=== PATIENT | male | born 1950 ===

== ENCOUNTER 2016-05-31 14:31 | Emergency (ER) | payer OTHER ==
[2016-05-31 14:31] VITALS: BMI 26.9
[2016-05-31 14:39] VITALS: BP 121/63; PULSE 63; RESP 16; TEMP 97.9; O2SAT 99
--- NOTE | 2016-05-31 14:45 | ED PDOC ---
Arrival/HPI - General Chief Complaint: Abnormal Skin Integrity Time Seen by Provider: 05/31/16 14:41 Historian: Patient - History of Present Illness Narrative History of Present Illness (Text): 05/31/16 14:42 65yo male present in ED with a lesion to his left sided chin x days. States it started as a small pimple which he scratched and then it became bigger, painful and red. Denies fever, chills, any other complaint. Past Medical History - Provider Review Nursing Documentation Reviewed: Yes - Infectious Disease Hx of Infectious Diseases: None - Cardiac Hx Cardiac Disorders: Yes Hx Hypertension: Yes - Pulmonary Hx Respiratory Disorders: No - Neurological Hx Neurological Disorder: No - HEENT Hx HEENT Disorder: No - Renal Hx Renal Disorder: No - Endocrine/Metabolic Hx Endocrine Disorders: No - Hematological/Oncological Hx Blood Disorders: No - Integumentary Hx Dermatological Disorder: No - Musculoskeletal/Rheumatological Hx Musculoskeletal Disorders: Yes Hx Falls: No Hx Fractures: Yes (left thumb has sx) Other/Comment: HERNIA - Gastrointestinal Hx Gastrointestinal Disorders: No - Genitourinary/Gynecological Hx Genitourinary Disorders: No - Psychiatric Hx Psychophysiologic Disorder: No Hx Substance Use: No - Surgical History Other/Comment: RLQ hernia repair - Anesthesia Hx Anesthesia: No Hx Anesthesia Reactions: No Hx Malignant Hyperthermia: No - Suicidal Assessment Feels Threatened In Home Enviroment: No Family/Social History - Physician Review Nursing Documentation Reviewed: Yes Family/Social History: Unknown Family HX Smoking Status: Former Smoker Hx Alcohol Use: No (quit 1988) Hx Substance Use: No Allergies/Home Meds Allergies/Adverse Reactions: Allergies No Known Allergies Allergy (Verified 05/31/16 14:32) Home Medications: Home Meds Medication Instructions Recorded Confirmed Lisinopril [Zestril] 20 mg PO DAILY 01/22/16 05/31/16 Aspirin [Adult Low Dose Aspirin EC] 81 mg PO DAILY 05/31/16 05/31/16 Review of Systems - Physician Review All systems were reviewed & negative as marked: Yes - Review of Systems Constitutional: Normal Eyes: Normal ENT: Normal Respiratory: Normal Cardiovascular: Normal Gastrointestinal: Normal Genitourinary Male: Normal Musculoskeletal: Normal Skin: Skin Lesions (Left sided chin) Neurological: Normal Endocrine: Normal Hemo/Lymphatic: Normal Psychiatric: Normal Physical Exam Vital Signs Reviewed: Yes Vital Signs Temp Pulse Resp BP Pulse Ox 05/31/16 14:34 97.9 F 63 16 121/63 99 Temperature: Afebrile Blood Pressure: Normal Pulse: Regular Respiratory Rate: Normal Appearance: Positive for: Well-Appearing, Non-Toxic, Comfortable Pain Distress: None Mental Status: Positive for: Alert and Oriented X 3 - Systems Exam Head: Present: Atraumatic, Normocephalic Pupils: Present: PERRL Extroacular Muscles: Present: EOMI Conjunctiva: Present: Normal Mouth: Present: Moist Mucous Membranes Neck: Present: Normal Range of Motion Respiratory/Chest: Present: Clear to Auscultation, Good Air Exchange. No: Respiratory Distress, Accessory Muscle Use Cardiovascular: Present: Regular Rate and Rhythm, Normal S1, S2. No: Murmurs Abdomen: Present: Normal Bowel Sounds. No: Tenderness, Distention, Peritoneal Signs Back: Present: Normal Inspection Upper Extremity: Present: Normal Inspection. No: Cyanosis, Edema Lower Extremity: Present: Normal Inspection. No: Edema Neurological: Present: GCS=15, CN II-XII Intact, Speech Normal Skin: Present: Warm, Dry, Normal Color, Other (ERythematous circumscribed mildly raised patch with central fibrous tissue noted on left chin). No: Rashes Psychiatric: Present: Alert, Oriented x 3, Normal Insight, Normal Concentration Medical Decision Making - Medication Orders Current Medication Orders: Discontinued Medications Clindamycin HCl (Cleocin) 300 mg PO STAT STA PRN Reason: Protocol Stop: 05/31/16 14:42 Last Admin: 05/31/16 15:14 Dose: 300 MG Disposition/Present on Arrival - Present on Arrival Any Indicators Present on Arrival: No History of DVT/PE: No History of Uncontrolled Diabetes: No Urinary Catheter: No History of Decub. Ulcer: No History Surgical Site Infection Following: None - Disposition Have Diagnosis and Disposition been Completed?: Yes Diagnosis: Folliculitis Disposition: HOME/ ROUTINE Disposition Time: 15:00 Patient Plan: Discharge Condition: STABLE Discharge Instructions (ExitCare): Folliculitis (ED) Print Language: VIETNAMESE Additional Instructions: Take medication as directed Follow up with your Doctor Return to ED for any new or worsening symptoms Prescriptions: Clindamycin [Cleocin] 300 mg PO TID #10 cap Referrals: [facility] at [facility] [Outside] - Follow up with primary
== END 2016-05-31 15:31 | disposition home or self-care (01) ==
LOC: ED 14:31
DX: L73.9 Follicular disorder, unspecified (principal)

== ENCOUNTER 2016-07-19 06:20 | Day surgery (SDC) | payer OTHER ==
[2016-07-18 09:16] VITALS: BMI 27.4
[2016-07-19] MEDS ORDERED: Lidocaine 2% Inj (20ml) ONE (06:27)
[2016-07-19] MEDS ORDERED: Iohexol 350mgl/ml 50 ML ONE (06:28)
[2016-07-19] MEDS ORDERED: Nitroglycerin 50mg in D5W 0 MG/0 ML BOTTLE IV ONE (06:28)
[2016-07-19] MEDS ORDERED: Phenylephrine 10 mg/ml Inj ONE (06:28)
[2016-07-19] MEDS ORDERED: Iodixanol 320 MG/ML 200 ML BOTTLE IV ONE (06:28)
[2016-07-19] MEDS ORDERED: Iodixanol 320 MG/ML 100 ML BOTTLE IV ONE (06:28)
[2016-07-19 06:49] LABS: ADD MANUAL DIFF? NO
[2016-07-19 07:06] LABS: INR 0.97 (0.93-1.08); PARTIAL THROMBOPLASTIN TIME 26.9 Seconds (23.7-30.8)
[2016-07-19 07:11] LABS: BASO # 0.02 K/mm3 (0.0-2.0); BASO % 0.5 % (0.0-3.0); EOS # 0.2 (0.0-0.7); EOS % 3.5 % (1.5-5.0); GRAN # 2.29 (1.4-6.5); HEMATOCRIT 43.2 % (42.0-52.0); LYMPH # 1.6 (1.2-3.4); MEAN CELL VOLUME 87.1 fL (80.0-105.0); MEAN CORPUSCULAR HEMOGLOBIN 30.8 pg (25.0-35.0); MEAN CORPUSCULAR HGB CONC 35.4 g/dl (31.0-37.0); MEAN PLATELET VOLUME 9.6 fl (7.0-11.0); MONO # 0.3 (0.1-0.6); PLATELET COUNT 235 10^3/uL (120.0-450.0); RED CELL DISTRIBUTION WIDTH 12.7 % (11.5-14.5); WHITE BLOOD COUNT 4.3 10^3/ul (4.5-11.0)
[2016-07-19 07:17] LABS: BLOOD UREA NITROGEN 19 mg/dL (7-21); CALCIUM 9.5 mg/dL (8.4-10.5); CARBON DIOXIDE 30 mmol/L (21-33); CHLORIDE 102 mmol/L (98-107); GFR AFRICAN-AMERICAN > 60; GLUCOSE,RANDOM 99 mg/dL (70-110); POTASSIUM 4.1 mmol/L (3.6-5.0); SODIUM 140 mmol/L (132-148)
[2016-07-19] MEDS ORDERED: Midazolam 2 MG/2 ML VIAL ONE ×2 (07:39→08:05)
[2016-07-19] MEDS ORDERED: Sodium Chloride 0.9% 1,000 ML IV SCH (09:45)
--- NOTE | 2016-07-19 10:27 | CARDCATH ---
PROCEDURE DATE: 07/19/2016 HISTORY: The patient is a 65-year-old male with multiple cardiac risk factors who presents with ches t pain and an abnormal stress test. A cardiac catheterization was recommended. PROCEDURE: Left heart catheterization with coronary angiography and left ventriculogram, followed by IVUS of the left main artery as well as PTCA and stent of the LAD and circumflex artery. The right femoral artery was cannulated with a 6-Yi sheath. There were no complications. The findings on catheterization reveal a right dominant circulation. The RCA was diffusely diseased with a 70-80% stenosis in the mid portion of the RCA followed by diffu se disease and a 90% stenosis in the PDA. The left main artery revealed an eccentric lesion at its ostium/proximal portion of approximately 50% . The LAD revealed diffuse atherosclerosis with a 90% stenosis in the mid portion. The circumflex artery revealed a 90% stenosis in the mid portion. LV function was preserved with an EF of approximately 50-55%. IVUS of the left main artery was performed. IVUS revealed a marked eccentric plaque in a large left main artery, percent stenosis of approximately 50%. The cross sectional area of the left main at the area of the maximum stenosis was greater than 7 mm2. Because of these findings in the left main, we proceeded with angioplasty. The patient was started on intravenous Angiomax. Under fluoroscopic guide, the guiding catheter was placed in the ostium of the left main. An 0.014 ATW wire was used to cross the critical lesion in th e circumflex artery. Predilatation was accomplished with a 2.5 balloon. A 12 mm x 3.5 drug-eluting stent was placed in the circumflex lesion at 12 atmospheres of pressure. Repeat coronary angiography revealed an excellent result with no residual stenosis and MONIQUE 3 flow. The wire was then brought back and placed in the LAD past the critical lesion. A 3.0 x 15 mm drug-eluting stent was placed and deployed at 12 atmospheres of pressure. Post-dilatat ion was performed with a 3.5 noncompliant balloon. Repeat coronary arteriography revealed an excellent result with no residual stenosis and MONIQUE 3 flow. Angio-Seal was used to close the femoral artery site. The patient tolerated the procedure well. IN SUMMARY: 1. The procedure was successful percutaneous transluminal coronary angioplasty and stent of and left anterior descending and circumflex artery with drug-eluting stents. 2. Cardiac catheterization reveals triple-vessel disease with a borderline critical left main stenos is. 3. Intravascular ultrasound imaging of the eccentric left main stenosis revealed a cross sectional a bradford at the maximum stenosis of greater than 7 mm2. 4. Left ventricular function is normal. Given these findings, we will bring the patient back next week for PTCA of the RCA as well as a diffu sely diseased, subtotally occluded diagonal vessel. Dagoebrto White MD cc: [phone] TT: 07/19/2016 10:26:36 tn
--- NOTE | 2016-07-19 13:46 | CP.PCM.HP ---
<Benny Meade - Last Filed: 07/19/16 17:02> History of Present Illness - History of Present Illness History of Present Illness: 65M with pmh of HTN, admitted to [facility] after cardiac cath procedure. Pt. was at routine exam here at the [facility] last week and was worked up for chest pain that he had for over 4 years. He underwent a Echocardiogram which showed borderline concentric LV hypertrophy, borderline EF, and mild TR, mild pulm htn , ,and pulm valv regurg. A myocardial stress test was also done the same day which resulted in partially reversible, apical defect suspicious of ischemia. Cardiac cath showed 3 vessel disease with JOYA placed in the LAD, circumflex. A repeat cath for next week is scheduled and planned stent for the RCA. Today, after his procedure he had no complaints other that mild chest pain. He denies headache, fever, chills, difficulty breathing, N/V/D, abdominal pain or any GI/ symptoms. PMD 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 absent: Dyspnea - Respiratory Respiratory: absent: Cough, Dyspnea, Hemoptysis - Gastrointestinal Gastrointestinal: absent: Diarrhea, Hematemesis, Hematochezia, Nausea, Vomiting - Genitourinary Genitourinary: absent: Dysuria, Hematuria, Pyuria, Urinary Incontinence - Musculoskeletal Musculoskeletal: absent: Back Pain, Muscle Weakness, Neck Pain, Numbness, Tingling - Integumentary Integumentary: absent: Dry Skin, Pruritus, Rash, Skin Pain, Swelling - Neurological Neurological: absent: Abnormal Gait, Abnormal Speech, Lack of Coordination, Loss of Vision, Vertigo, Weakness - Psychiatric Psychiatric: absent: Confusion, Depression - Endocrine Endocrine: absent: Fatigue, Palpitations, Polydipsia, Polyphagia, Polyuria Past Patient History - Infectious Disease Hx of Infectious Diseases: None - Past Social History Smoking Status: Former Smoker Occupation: Repairs Furniture Alcohol: None Drugs: Denies Home Situation {Lives}: With Family - CARDIAC Hx Cardiac Disorders: Yes Hx Hypertension: Yes Hx Pacemaker: No - PULMONARY Hx Respiratory Disorders: No - NEUROLOGICAL Hx Neurological Disorder: No Hx Paralysis: No - HEENT Hx HEENT Problems: No - RENAL Hx Chronic Kidney Disease: No - ENDOCRINE/METABOLIC Hx Endocrine Disorders: No - HEMATOLOGICAL/ONCOLOGICAL Hx Blood Transfusions: No - INTEGUMENTARY Hx Dermatological Problems: No - MUSCULOSKELETAL/RHEUMATOLOGICAL Hx Musculoskeletal Disorders: Yes - GASTROINTESTINAL Hx Gastrointestinal Disorders: No - GENITOURINARY/GYNECOLOGICAL Hx Genitourinary Disorders: No - PSYCHIATRIC Hx Emotional Abuse: No Hx Physical Abuse: No Hx Substance Use: No - SURGICAL HISTORY Hx Surgeries: Yes - ANESTHESIA Hx Anesthesia Reactions: No Hx Malignant Hyperthermia: No Meds Allergies/Adverse Reactions: Allergies Allergy/AdvReac Type Severity Reaction Status Date / Time SALMON Allergy Severe VOMITING/DI Uncoded 07/18/16 09:16 ARRHEA Physical Exam - Constitutional Appears: Non-toxic, No Acute Distress - Head Exam Head Exam: ATRAUMATIC, NORMOCEPHALIC - Eye Exam Eye Exam: EOMI - ENT Exam ENT Exam: Mucous Membranes Moist, Normal Exam - Neck Exam Neck exam: Positive for: Normal Inspection. Negative for: Lymphadenopathy, Thyromegaly - Respiratory Exam Respiratory Exam: Clear to Auscultation Bilateral, NORMAL BREATHING PATTERN. absent: Rhonchi, Wheezes - Cardiovascular Exam Cardiovascular Exam: REGULAR RHYTHM, RRR, +S1, +S2. absent: JVD - GI/Abdominal Exam GI & Abdominal Exam: Normal Bowel Sounds, Soft. absent: Tenderness - Extremities Exam Extremities exam: Positive for: normal inspection. Negative for: calf tenderness, full ROM, joint swelling, pedal edema, tenderness - Neurological Exam Neurological exam: Alert, CN II-XII Intact, Normal Gait, Oriented x3, Reflexes Normal - Psychiatric Exam Psychiatric exam: Normal Affect, Normal Mood - Skin Skin Exam: Dry, Intact, Normal Color, Warm Results - Vital Signs Recent Vital Signs: Last Vital Signs Temp 98.7 F 07/19/16 12:00 Pulse 100 H 07/19/16 12:00 Resp 19 07/19/16 12:00 BP 138/78 07/19/16 12:00 Pulse Ox 98 07/19/16 06:55 - Labs Result Diagrams: 07/19/16 06:40 07/19/16 06:40 Labs: Laboratory Results - last 24 hr 07/19/16 07/19/16 07/19/16 06:40 06:40 06:40 WBC 4.3 L RBC 4.96 Hgb 15.3 Hct 43.2 MCV 87.1 MCH 30.8 MCHC 35.4 RDW 12.7 Plt Count 235 MPV 9.6 Gran % 53.0 Lymph % (Auto) 37.0 H Hickman % (Auto) 6.0 Eos % (Auto) 3.5 Baso % (Auto) 0.5 Gran # 2.29 Lymph # 1.6 Hickman # 0.3 Eos # 0.2 Baso # 0.02 PT 10.5 INR 0.97 APTT 26.9 Sodium 140 Potassium 4.1 Chloride 102 Carbon Dioxide 30 Anion Gap 12 BUN 19 Creatinine 1.0 Est GFR ( Amer) > 60 Est GFR (Non-Af Amer) > 60 Random Glucose 99 Calcium 9.5 Blood Type Blood Type Confirm Antibody Screen BBK History Checked 07/19/16 07/19/16 06:40 06:50 WBC RBC Hgb Hct MCV MCH MCHC RDW Plt Count MPV Gran % Lymph % (Auto) Hickman % (Auto) Eos % (Auto) Baso % (Auto) Gran # Lymph # Hickman # Eos # Baso # PT INR APTT Sodium Potassium Chloride Carbon Dioxide Anion Gap BUN Creatinine Est GFR ( Amer) Est GFR (Non-Af Amer) Random Glucose Calcium Blood Type A POSITIVE Blood Type Confirm A POSITIVE Antibody Screen Negative BBK History Checked No verified bt Assessment & Plan - Assessment and Plan (Free Text) Assessment: 65M with pmh of HTN s/p cath with 3 vessel disease and 2 JOYA placed. Plan: Myocardial Infarction - Cardiac Consult - Dr. White - Pt. s/p Cardiac Cath revealing 3 vessel disease in LAD, circumflex, and RCA. - JOYA placed in LAD, and circumflex - scheduled for stent in RCA next week. - Pt. currently on: -ASA 81mg -Lipitor 40mg -Plavix 75mg -Metoprolol 25mg BID - Assess Cath insertion site regularly HTN -on metoprolol DVT PPX SCDs - Date & Time Date: 07/19/16 Time: 14:00 <Oc Manuel B - Last Filed: 07/19/16 17:28> Results - Vital Signs Recent Vital Signs: Last Vital Signs Temp 98.7 F 07/19/16 12:00 Pulse 54 L 07/19/16 15:45 Resp 16 07/19/16 15:45 BP 114/49 L 07/19/16 15:45 Pulse Ox 98 07/19/16 06:55 - Labs Result Diagrams: 07/19/16 06:40 07/19/16 06:40 Labs: Laboratory Results - last 24 hr 07/19/16 07/19/16 07/19/16 06:40 06:40 06:40 WBC 4.3 L RBC 4.96 Hgb 15.3 Hct 43.2 MCV 87.1 MCH 30.8 MCHC 35.4 RDW 12.7 Plt Count 235 MPV 9.6 Gran % 53.0 Lymph % (Auto) 37.0 H Hickman % (Auto) 6.0 Eos % (Auto) 3.5 Baso % (Auto) 0.5 Gran # 2.29 Lymph # 1.6 Hickman # 0.3 Eos # 0.2 Baso # 0.02 PT 10.5 INR 0.97 APTT 26.9 Sodium 140 Potassium 4.1 Chloride 102 Carbon Dioxide 30 Anion Gap 12 BUN 19 Creatinine 1.0 Est GFR ( Amer) > 60 Est GFR (Non-Af Amer) > 60 Random Glucose 99 Calcium 9.5 Blood Type Blood Type Confirm Antibody Screen BBK History Checked 07/19/16 07/19/16 06:40 06:50 WBC RBC Hgb Hct MCV MCH MCHC RDW Plt Count MPV Gran % Lymph % (Auto) Hickman % (Auto) Eos % (Auto) Baso % (Auto) Gran # Lymph # Hickman # Eos # Baso # PT INR APTT Sodium Potassium Chloride Carbon Dioxide Anion Gap BUN Creatinine Est GFR ( Amer) Est GFR (Non-Af Amer) Random Glucose Calcium Blood Type A POSITIVE Blood Type Confirm A POSITIVE Antibody Screen Negative BBK History Checked No verified bt Attending/Attestation - Attestation I have personally seen and examined this patient.: Yes I have fully participated in the care of the patient.: Yes I have reviewed all pertinent clinical information: Yes Notes (Text): I have seen and examined the patient at bedside. This is 65 year old Yakut speaking male with history of HTN, inguinal hernia repair, former smoker who is admitted as an observation post cardiac cath. He underwent cardiac cath due to positive stress test. Stent was placed in LAD and circumflex. Plan for repeat cath next week. Continue aspirin, plavix, lipitor and metoprolol. Upon discharge patient will follow up in [facility] [place] Dr Oc Manuel
--- NOTE | 2016-07-19 14:35 | CARD ---
APPROVED REPORT EKG Measurement Heart [id number] CO [id number] <Conclusion> Sinus bradycardia Low voltage QRS limb leads Possible Inferior infarct, age undetermined NSSTW changes
[2016-07-20 06:13] VITALS: RESP 20; O2SAT 96
[2016-07-20 06:44] LABS: ADD MANUAL DIFF? NO
[2016-07-20 06:55] LABS: BASO # 0.01 K/mm3 (0.0-2.0); BASO % 0.2 % (0.0-3.0); EOS # 0.2 (0.0-0.7); EOS % 3.6 % (1.5-5.0); GRAN # 2.73 (1.4-6.5); LYMPH # 1.7 (1.2-3.4); LYMPH % 34.5 % (22.0-35.0); MEAN CELL VOLUME 87.1 fL (80.0-105.0); MEAN CORPUSCULAR HEMOGLOBIN 30.3 pg (25.0-35.0); MEAN CORPUSCULAR HGB CONC 34.8 g/dl (31.0-37.0); MEAN PLATELET VOLUME 9.7 fl (7.0-11.0); MONO # 0.3 (0.1-0.6); MONO % 6.7 % (1.0-6.0); PLATELET COUNT 232 10^3/uL (120.0-450.0); RED CELL DISTRIBUTION WIDTH 12.7 % (11.5-14.5)
[2016-07-20 07:12] LABS: BLOOD UREA NITROGEN 17 mg/dL (7-21); CALCIUM 9.2 mg/dL (8.4-10.5); CARBON DIOXIDE 29 mmol/L (21-33); CHLORIDE 101 mmol/L (98-107); CHOLESTEROL 174 mg/dL (130-200); GFR AFRICAN-AMERICAN > 60; GLUCOSE,RANDOM 89 mg/dL (70-110); POTASSIUM 4.2 mmol/L (3.6-5.0); SODIUM 139 mmol/L (132-148)
--- NOTE | 2016-07-20 09:58 | CP.PCM.DIS ---
<Benny Meade - Last Filed: 07/23/16 16:24> Provider - Provider Attending physician: Oc Manuel MD Primary care physician: Livia FINNEY Time Spent in preparation of Discharge (in minutes): 35 Diagnosis - Discharge Diagnosis (1) Chest pain due to myocardial ischemia Status: Acute (2) Coronary artery disease Status: Acute Hospital Course - Lab Results Lab Results: Most Recent Lab Values WBC 5.0 10^3/ul (4.5-11.0) 07/20/16 06:30 RBC 4.82 10^6/uL (3.5-6.1) 07/20/16 06:30 Hgb 14.6 gm/dL (14.0-18.0) 07/20/16 06:30 Hct 42.0 % (42.0-52.0) 07/20/16 06:30 MCV 87.1 fL (80.0-105.0) 07/20/16 06:30 MCH 30.3 pg (25.0-35.0) 07/20/16 06:30 MCHC 34.8 g/dl (31.0-37.0) 07/20/16 06:30 RDW 12.7 % (11.5-14.5) 07/20/16 06:30 Plt Count 232 10^3/uL (120.0-450.0) 07/20/16 06:30 MPV 9.7 fl (7.0-11.0) 07/20/16 06:30 Gran % 55.0 % (50.0-68.0) 07/20/16 06:30 Lymph % (Auto) 34.5 % (22.0-35.0) 07/20/16 06:30 Nobles % (Auto) 6.7 % (1.0-6.0) H 07/20/16 06:30 Eos % (Auto) 3.6 % (1.5-5.0) 07/20/16 06:30 Baso % (Auto) 0.2 % (0.0-3.0) 07/20/16 06:30 Gran # 2.73 (1.4-6.5) 07/20/16 06:30 Lymph # 1.7 (1.2-3.4) 07/20/16 06:30 Nobles # 0.3 (0.1-0.6) 07/20/16 06:30 Eos # 0.2 (0.0-0.7) 07/20/16 06:30 Baso # 0.01 K/mm3 (0.0-2.0) 07/20/16 06:30 PT 10.5 Seconds (9.9-11.8) 07/19/16 06:40 INR 0.97 (0.93-1.08) 07/19/16 06:40 APTT 26.9 Seconds (23.7-30.8) 07/19/16 06:40 Sodium 139 mmol/L (132-148) 07/20/16 06:30 Potassium 4.2 mmol/L (3.6-5.0) 07/20/16 06:30 Chloride 101 mmol/L (98-107) 07/20/16 06:30 Carbon Dioxide 29 mmol/L (21-33) 07/20/16 06:30 Anion Gap 13 (10-20) 07/20/16 06:30 BUN 17 mg/dL (7-21) 07/20/16 06:30 Creatinine 1.0 mg/dL (0.5-1.4) 07/20/16 06:30 Est GFR ( Amer) > 60 07/20/16 06:30 Est GFR (Non-Af Amer) > 60 07/20/16 06:30 Random Glucose 89 mg/dL (70-110) 07/20/16 06:30 Calcium 9.2 mg/dL (8.4-10.5) 07/20/16 06:30 Triglycerides 107 mg/dL (35-160) 07/20/16 06:30 Cholesterol 174 mg/dL (130-200) 07/20/16 06:30 LDL Cholesterol Direct 94 mg/dL (0-129) 07/20/16 06:30 HDL Cholesterol 38 mg/dL (29-60) 07/20/16 06:30 TSH 3rd Generation 1.76 mIU/mL (0.46-4.68) 07/20/16 06:30 Blood Type A POSITIVE 07/19/16 06:40 Blood Type Confirm A POSITIVE 07/19/16 06:50 Antibody Screen Negative 07/19/16 06:40 BBK History Checked No verified bt 07/19/16 06:40 - Hospital Course Hospital Course: 65M with pmh of HTN, admitted to tele after cardiac cath procedure. Pt. was at routine exam here at the [facility] last week and was worked up for chest pain that he had for over 4 years. He underwent a Echocardiogram which showed borderline concentric LV hypertrophy, borderline EF, and mild TR, mild pulm htn , ,and pulm valv regurg. A myocardial stress test was also done the same day which resulted in partially reversible, apical defect suspicious of ischemia. Cardiac cath showed 3 vessel disease with JOYA placed in the LAD, circumflex. A repeat cath for next week is scheduled and planned stent for the RCA. This is a brief account of his stay. For more information, please see his chart. - Date & Time of H&P Date of H&P: 07/20/16 Time of H&P: 07:20 Discharge Exam - Head Exam Head Exam: ATRAUMATIC, NORMOCEPHALIC - Eye Exam Eye Exam: EOMI, Normal appearance - ENT Exam ENT Exam: Mucous Membranes Moist - Neck Exam Neck exam: Full Rom - Respiratory Exam Respiratory Exam: Clear to PA & Lateral, NORMAL BREATHING PATTERN, UNREMARKABLE. absent: Respiratory Distress - Cardiovascular Exam Cardiovascular Exam: REGULAR RHYTHM, RRR, +S1, +S2. absent: JVD - GI/Abdominal Exam GI & Abdominal Exam: Normal Bowel Sounds, Soft, Unremarkable. absent: Tenderness - Back Exam Back exam: absent: CVA tenderness (L), CVA tenderness (R), paraspinal tenderness - Neurological Exam Neurological exam: Alert, CN II-XII Intact, Oriented x3 - Psychiatric Exam Psychiatric exam: Normal Affect, Normal Mood - Skin Skin Exam: Dry, Intact, Normal Color, Warm Discharge Plan - Discharge Medications Prescriptions: Aspirin [Ecotrin] 81 mg PO DAILY #30 Atorvastatin [Lipitor] 40 mg PO DIN #30 tab Clopidogrel [Plavix] 75 mg PO DAILY #30 tab Metoprolol Tartrate [Lopressor] 25 mg PO BID #30 tab - Follow Up Plan Condition: GOOD Disposition: HOME/ ROUTINE Instructions: Chest Pain (DC) Additional Instructions: Pt. is medically stable for discharge. Please follow up with your appointment next week for your second cardiac catheterization. You will be contacted to schedule this. Please follow up with your primary care doctor, let them know you will be scheduled for another heart catheterization and will have a total of 3 stents. Please stop taking your home prescription of Lisinopril. Thank you for allowing us to take part in your care Referrals: Livia Moses APN-C [Primary Care Provider] - Dagoberto White MD [Staff Provider] - <Oc Manuel - Last Filed: 07/30/16 13:33> Provider - Provider Attending physician: Oc Manuel MD Primary care physician: Livia FINNEY Hospital Course - Lab Results Lab Results: Most Recent Lab Values WBC 5.0 10^3/ul (4.5-11.0) 07/20/16 06:30 RBC 4.82 10^6/uL (3.5-6.1) 07/20/16 06:30 Hgb 14.6 gm/dL (14.0-18.0) 07/20/16 06:30 Hct 42.0 % (42.0-52.0) 07/20/16 06:30 MCV 87.1 fL (80.0-105.0) 07/20/16 06:30 MCH 30.3 pg (25.0-35.0) 07/20/16 06:30 MCHC 34.8 g/dl (31.0-37.0) 07/20/16 06:30 RDW 12.7 % (11.5-14.5) 07/20/16 06:30 Plt Count 232 10^3/uL (120.0-450.0) 07/20/16 06:30 MPV 9.7 fl (7.0-11.0) 07/20/16 06:30 Gran % 55.0 % (50.0-68.0) 07/20/16 06:30 Lymph % (Auto) 34.5 % (22.0-35.0) 07/20/16 06:30 Nobles % (Auto) 6.7 % (1.0-6.0) H 07/20/16 06:30 Eos % (Auto) 3.6 % (1.5-5.0) 07/20/16 06:30 Baso % (Auto) 0.2 % (0.0-3.0) 07/20/16 06:30 Gran # 2.73 (1.4-6.5) 07/20/16 06:30 Lymph # 1.7 (1.2-3.4) 07/20/16 06:30 Nobles # 0.3 (0.1-0.6) 07/20/16 06:30 Eos # 0.2 (0.0-0.7) 07/20/16 06:30 Baso # 0.01 K/mm3 (0.0-2.0) 07/20/16 06:30 PT 10.5 Seconds (9.9-11.8) 07/19/16 06:40 INR 0.97 (0.93-1.08) 07/19/16 06:40 APTT 26.9 Seconds (23.7-30.8) 07/19/16 06:40 Sodium 139 mmol/L (132-148) 07/20/16 06:30 Potassium 4.2 mmol/L (3.6-5.0) 07/20/16 06:30 Chloride 101 mmol/L (98-107) 07/20/16 06:30 Carbon Dioxide 29 mmol/L (21-33) 07/20/16 06:30 Anion Gap 13 (10-20) 07/20/16 06:30 BUN 17 mg/dL (7-21) 07/20/16 06:30 Creatinine 1.0 mg/dL (0.5-1.4) 07/20/16 06:30 Est GFR ( Amer) > 60 07/20/16 06:30 Est GFR (Non-Af Amer) > 60 07/20/16 06:30 Random Glucose 89 mg/dL (70-110) 07/20/16 06:30 Calcium 9.2 mg/dL (8.4-10.5) 07/20/16 06:30 Triglycerides 107 mg/dL (35-160) 07/20/16 06:30 Cholesterol 174 mg/dL (130-200) 07/20/16 06:30 LDL Cholesterol Direct 94 mg/dL (0-129) 07/20/16 06:30 HDL Cholesterol 38 mg/dL (29-60) 07/20/16 06:30 TSH 3rd Generation 1.76 mIU/mL (0.46-4.68) 07/20/16 06:30 Blood Type A POSITIVE 07/19/16 06:40 Blood Type Confirm A POSITIVE 07/19/16 06:50 Antibody Screen Negative 07/19/16 06:40 BBK History Checked No verified bt 07/19/16 06:40 Attending/Attestation - Attestation I have personally seen and examined this patient.: Yes I have fully participated in the care of the patient.: Yes I have reviewed all pertinent clinical information, including history, physical exam and plan: Yes Notes (Text): I have seen and examined the patient at bedside. This is 65 year old Albanian speaking male with history of HTN, inguinal hernia repair, former smoker who is admitted as an observation post cardiac cath. He underwent cardiac cath due to positive stress test. Stent was placed in LAD and circumflex. Plan for repeat cath next week. Patient will follow up in [facility] clinic. Dr Oc Manuel
--- NOTE | 2016-07-20 11:50 | CARD ---
APPROVED REPORT EKG Measurement Heart [id number] ID [id number] <Conclusion> Sinus bradycardia Possible IMI, age unknown NSSTW changes
[2016-07-20 13:05] VITALS: BP 118/64; PULSE 68; TEMP 98.1
== END 2016-07-20 15:45 | disposition home or self-care (01) ==
LOC: CATH 06:20 → 2RSO 09:24 → CATH 07-20 15:45
PROVIDERS: ATTEND Hospitalist
DX: I25.10 Atherosclerotic heart disease of native coronary artery without angina pectoris (principal); I10 Essential (primary) hypertension; Z87.891 Personal history of nicotine dependence
CPT/HCPCS: 36415; 80048; 85025; 85610; 85730; 86850; 86900; 92978; 93005; 93458; 99152; 99153; C1725 ×2; C1753; C1760; C1769 ×2; C1874 ×2; C1887; C2629; C9600; C9601; J0583; J1644; J2250; J3010; J7040 ×2; Q9967 ×2

== ENCOUNTER 2016-07-25 06:03 | Day surgery (SDC) | payer OTHER ==
[2016-07-23 11:00] VITALS: BMI 26.6
[2016-07-25] MEDS ORDERED: Iodixanol 320 MG/ML 100 ML BOTTLE IV ONE (06:21)
[2016-07-25] MEDS ORDERED: Phenylephrine 10 mg/ml Inj ONE (06:21)
[2016-07-25] MEDS ORDERED: Nitroglycerin 50mg in D5W 0 MG/0 ML BOTTLE IV ONE (06:21)
[2016-07-25] MEDS ORDERED: Iodixanol 320 MG/ML 200 ML BOTTLE IV ONE (06:21)
[2016-07-25] MEDS ORDERED: Iohexol 350mgl/ml 50 ML ONE (06:21)
[2016-07-25] MEDS ORDERED: Lidocaine 2% Inj (20ml) ONE (06:21)
[2016-07-25 06:58] LABS: ADD MANUAL DIFF? NO
[2016-07-25 07:10] LABS: BLOOD UREA NITROGEN 15 mg/dL (7-21); CALCIUM 8.8 mg/dL (8.4-10.5); CARBON DIOXIDE 28 mmol/L (21-33); CHLORIDE 102 mmol/L (98-107); GFR AFRICAN-AMERICAN > 60; GLUCOSE,RANDOM 106 mg/dL (70-110); POTASSIUM 3.8 mmol/L (3.6-5.0); SODIUM 140 mmol/L (132-148)
[2016-07-25 07:12] LABS: INR 1.02 (0.93-1.08); PARTIAL THROMBOPLASTIN TIME 26.1 Seconds (23.7-30.8)
[2016-07-25] MEDS ORDERED: Midazolam 2 MG/2 ML VIAL ONE ×2 (07:21→07:53)
[2016-07-25 07:22] LABS: BASO # 0.02 K/mm3 (0.0-2.0); BASO % 0.5 % (0.0-3.0); EOS # 0.2 (0.0-0.7); EOS % 3.9 % (1.5-5.0); GRAN # 1.64 (1.4-6.5); GRAN % 42.8 % (50.0-68.0); HEMATOCRIT 38.7 % (42.0-52.0); LYMPH # 1.7 (1.2-3.4); LYMPH % 43.2 % (22.0-35.0); MEAN CELL VOLUME 85.8 fL (80.0-105.0); MEAN CORPUSCULAR HEMOGLOBIN 30.6 pg (25.0-35.0); MEAN CORPUSCULAR HGB CONC 35.7 g/dl (31.0-37.0); MEAN PLATELET VOLUME 9.4 fl (7.0-11.0); MONO # 0.4 (0.1-0.6); MONO % 9.6 % (1.0-6.0); PLATELET COUNT 233 10^3/uL (120.0-450.0); RED CELL DISTRIBUTION WIDTH 12.3 % (11.5-14.5); WHITE BLOOD COUNT 3.8 10^3/ul (4.5-11.0)
[2016-07-25] MEDS ORDERED: Sodium Chloride 0.9% 1,000 ML IV SCH (08:30)
--- NOTE | 2016-07-25 12:33 | CARDCATH ---
PROCEDURE DATE: 07/25/2016 HISTORY: The patient is a 65-year-old male who presents for staged PTCA of an RCA. Last week, he presented with unstable angina. 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 He was also n oted to have a borderline critical left main stenoses documented by IVUS. However, the area of steno sis was greater than 7 mm squared. He underwent PTCA and stent of the left anterior descending and circumflex artery. He was brought ba for PTCA and stent of the RCA. PROCEDURE: Left heart catheterization with coronary angiography and left ventriculogram. The left femoral artery was cannulated with a 6-Vincentian sheath. There were no complications. His right coronary artery was found to be a dominant vessel with multiple critical lesions including a 70%-80% stenosis in the portion followed by a 90% stenosis in the PDA. The stents in the left anterior descending and circumflex artery were patent. However, in the ANIKET cranial view, the ostial left main stenoses was now noted to be greater than 90%. LV function revealed normal LV function. No intervention was performed. Angio-Seal was used to close the femoral artery site. The patient tolerated the procedure well. In summary, the procedure revealed a 90% ostial left main stenosis that was worse than seen on his pr evious procedure. The stents in the LAD and circumflex arteries, which were drug-eluting stents, were found to be paten t. The RCA revealed multiple critical lesions. LV function is normal. Given these findings, no angioplasty of the RCA was done. Instead, I have contacted Dr. Liban cota of [facility] for transfer to [facility] for coronary artery bypass surgery. Dagoberto White MD cc: [phone] TT: 07/25/2016 10:22:58 jade
--- NOTE | 2016-07-25 13:30 | CP.PCM.HP ---
<MeadeBenny jimenez - Last Filed: 07/25/16 17:11> History of Present Illness - History of Present Illness History of Present Illness: 65 year old moroccan speaking male with pmh of HTN, admitted to [facility] after cardiac cath procedure for planned stent in the RCA. Pt. underwent a cardiac cath last week which showed 3 vessel disease with JOYA placed in the LAD and circumflex. The stent was not able to be placed during the procedure today. Pt. needs to be evaluated by a Cardio-thoracic surgeon for possible CABG. He is likely to be transferred to [facility] and awaiting a bed to be available. He has no complaints at this time and denies headache, fever, chills , chest pain, difficulty breathing, N/V/D, abdominal pain, any GI/ symptoms or any bleeding/tenderness at the left inguinal cath site. Employment Interviewer #[id number] was reached via teleconference for translation. PMD 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 Tob - quit 30 years ago Alc - denies Drugs - denies All Kamas dizzy, vomits, diarrhea Meds Lisinopril 20 ASA 81 Multivitamin Present on Admission - Present on Admission Any Indicators Present on Admission: No Review of Systems - Constitutional Constitutional: absent: Chills, Fever, Headache - EENT Eyes: absent: Blurred Vision, Change in Vision Ears: absent: Abnormal Hearing, Dizziness Nose/Mouth/Throat: absent: Hoarsness, Sore Throat, Facial Pain, Neck Pain - Cardiovascular Cardiovascular: absent: Chest Pain, Chest Pain at Rest, Dyspnea, Leg Edema, Leg Ulcers, Radiating Pain, Syncope - Respiratory Respiratory: absent: Cough, Dyspnea, Chest Congestion - Gastrointestinal Gastrointestinal: absent: Abdominal Pain, Diarrhea, Nausea, Vomiting - Genitourinary Genitourinary: absent: Dysuria, Hematuria, Pyuria, Urinary Incontinence - Musculoskeletal Musculoskeletal: absent: Back Pain, Neck Pain, Numbness, Tingling - Integumentary Integumentary: absent: Rash, Skin Pain, Swelling, Wounds - Neurological Neurological: absent: Abnormal Hearing, Abnormal Movements, Abnormal Speech, Dizziness, Loss of Vision, Tingling, Weakness - Endocrine Endocrine: absent: Cold Intolorance, Fatigue, Flushing, Heat Intolorance, Palpitations, Polydipsia, Polyphagia, Polyuria Past Patient History - Infectious Disease Hx of Infectious Diseases: None - Past Medical History & Family History Pertinent Family History: denies - Past Social History Smoking Status: Former Smoker Alcohol: None Drugs: Denies Home Situation {Lives}: With Family - CARDIAC Hx Cardiac Disorders: Yes Hx Pacemaker: No Other/Comment: CAD - PULMONARY Hx Respiratory Disorders: No - NEUROLOGICAL Hx Paralysis: No - HEENT Hx HEENT Problems: No - RENAL Hx Chronic Kidney Disease: No - ENDOCRINE/METABOLIC Hx Endocrine Disorders: No - HEMATOLOGICAL/ONCOLOGICAL Hx Blood Transfusions: No - INTEGUMENTARY Hx Dermatological Problems: No - MUSCULOSKELETAL/RHEUMATOLOGICAL Hx Musculoskeletal Disorders: Yes - GASTROINTESTINAL Hx Gastrointestinal Disorders: No - GENITOURINARY/GYNECOLOGICAL Hx Genitourinary Disorders: No - PSYCHIATRIC Hx Emotional Abuse: No Hx Physical Abuse: No Hx Substance Use: No - SURGICAL HISTORY Hx Surgeries: Yes Hx Cardiac Catheterization: Yes (07/19/16 3 vessel disease received 2 stents) - ANESTHESIA Hx Anesthesia Reactions: No Hx Malignant Hyperthermia: No Meds Allergies/Adverse Reactions: Allergies Allergy/AdvReac Type Severity Reaction Status Date / Time SALMON Allergy Severe VOMITING/DI Uncoded 07/18/16 09:16 ARRHEA Physical Exam - Constitutional Appears: Non-toxic, No Acute Distress - Head Exam Head Exam: ATRAUMATIC, NORMOCEPHALIC - Eye Exam Eye Exam: EOMI - ENT Exam ENT Exam: Mucous Membranes Moist - Respiratory Exam Respiratory Exam: Clear to Auscultation Bilateral, NORMAL BREATHING PATTERN - Cardiovascular Exam Cardiovascular Exam: REGULAR RHYTHM, +S1, +S2. absent: JVD - GI/Abdominal Exam GI & Abdominal Exam: Normal Bowel Sounds, Soft. absent: Tenderness - Extremities Exam Extremities exam: Positive for: pedal pulses present. Negative for: joint swelling, pedal edema, tenderness - Neurological Exam Neurological exam: Alert, Oriented x3 - Psychiatric Exam Psychiatric exam: Normal Affect, Normal Mood - Skin Skin Exam: Dry, Intact, Normal Color, Warm Results - Vital Signs Recent Vital Signs: Last Vital Signs Temp 97.8 F 07/25/16 12:00 Pulse 66 07/25/16 12:36 Resp 19 07/25/16 12:36 BP 112/63 07/25/16 12:36 Pulse Ox 100 07/25/16 06:30 - Labs Result Diagrams: 07/25/16 06:55 07/25/16 06:55 Labs: Laboratory Results - last 24 hr 07/25/16 07/25/16 07/25/16 06:55 06:55 06:55 WBC 3.8 L D RBC 4.51 Hgb 13.8 L Hct 38.7 L MCV 85.8 MCH 30.6 MCHC 35.7 RDW 12.3 Plt Count 233 MPV 9.4 Gran % 42.8 L Lymph % (Auto) 43.2 H [place] % (Auto) 9.6 H Eos % (Auto) 3.9 Baso % (Auto) 0.5 Gran # 1.64 Lymph # 1.7 [place] # 0.4 Eos # 0.2 Baso # 0.02 PT 11.0 INR 1.02 APTT 26.1 Sodium 140 Potassium 3.8 Chloride 102 Carbon Dioxide 28 Anion Gap 14 BUN 15 Creatinine 0.9 Est GFR ( Amer) > 60 Est GFR (Non-Af Amer) > 60 Random Glucose 106 Calcium 8.8 Blood Type Antibody Screen BBK History Checked 07/25/16 06:55 WBC RBC Hgb Hct MCV MCH MCHC RDW Plt Count MPV Gran % Lymph % (Auto) [place] % (Auto) Eos % (Auto) Baso % (Auto) Gran # Lymph # [place] # Eos # Baso # PT INR APTT Sodium Potassium Chloride Carbon Dioxide Anion Gap BUN Creatinine Est GFR ( Amer) Est GFR (Non-Af Amer) Random Glucose Calcium Blood Type A POSITIVE Antibody Screen Negative BBK History Checked Patient has bt Assessment & Plan - Assessment and Plan (Free Text) Assessment: 65M with pmh of HTN and recent cardiac cath for 3 vessel disease with 2 stents placed in the LAD and circumflex last week. Pt. is s/p second cath in which a stent was unable to be placed. Plan: 3 vessel disease in LAD, circumflex, and RCA - Cardiac Consult - Dr. Gomez - Last week 2 JOYA placed in LAD, and circumflex, no complications - Pt. s/p 2nd Cardiac Cath, unable to place 3rd stent - awaiting bed in [facility] for Cardio-Thoracic evaluations for possible CABG - Pt. currently on: -ASA 81mg -Lipitor 40mg -Metoprolol 25mg BID - Assess Cath insertion site regularly HTN -on metoprolol DVT PPX SCDs - Date & Time Date: 07/25/16 Time: 12:30 <Mitzy Beckham - Last Filed: 07/27/16 13:32> Results - Vital Signs Recent Vital Signs: Last Vital Signs Temp 98.2 F 07/25/16 23:51 Pulse 51 L 07/25/16 23:51 Resp 20 07/25/16 23:51 BP 109/60 07/25/16 23:51 Pulse Ox 99 07/25/16 23:51 - Labs Result Diagrams: 07/25/16 06:55 07/25/16 06:55 Attending/Attestation - Attestation I have personally seen and examined this patient.: Yes I have fully participated in the care of the patient.: Yes I have reviewed all pertinent clinical information: Yes Notes (Text): 07/27/16 13:25 hospitalist note; Patient seen and examined with resident. Agreed with resident's note with some exceptions. patient is a 65-year-old pmh of HTN, CAD stent is admitted post cardiac cath. Patient underwent a cardiac cath last week which showed 3 vessel disease with JOYA placed in the LAD and circumflex. found to have left main stenosis. LV function was normal. The patient came in today for outpatient cardiac cath by Dr. Gomez. cardiac cath revealed RCA 70-80% and left main over 90% stenosis. since there is critical left main stenosis the patient will be referred to [facility]. Patient will go to [facility] for CABG. Case discussed with cardioThoracic surgery by DR. gomez. Waiting for transfer. The diagnosis and plan discussed with patient in detail via special education case manager. 07/27/16 13:31
--- NOTE | 2016-07-25 16:25 | CARD ---
APPROVED REPORT EKG Measurement Heart [id number] <Conclusion> Normal sinus rhythm Low voltage QRS Borderline ECG
[2016-07-25 18:28] VITALS: RESP 20
[2016-07-25 23:52] VITALS: BP 109/60; PULSE 51; TEMP 98.2; O2SAT 99
[2016-07-26] MEDS ORDERED: Bacitracin 500 Units/gm Oint Foilpak UD ONE (13:54)
--- NOTE | 2016-07-26 21:19 | CP.PCM.DIS ---
<Benny Meade - Last Filed: 07/27/16 22:06> Provider - Provider Attending physician: Mitzy Beckham MD Primary care physician: Livia FINNEY Time Spent in preparation of Discharge (in minutes): 35 Diagnosis - Discharge Diagnosis (1) Coronary artery disease Status: Acute Hospital Course - Lab Results Lab Results: Most Recent Lab Values WBC 3.8 10^3/ul (4.5-11.0) L D 07/25/16 06:55 RBC 4.51 10^6/uL (3.5-6.1) 07/25/16 06:55 Hgb 13.8 gm/dL (14.0-18.0) L 07/25/16 06:55 Hct 38.7 % (42.0-52.0) L 07/25/16 06:55 MCV 85.8 fL (80.0-105.0) 07/25/16 06:55 MCH 30.6 pg (25.0-35.0) 07/25/16 06:55 MCHC 35.7 g/dl (31.0-37.0) 07/25/16 06:55 RDW 12.3 % (11.5-14.5) 07/25/16 06:55 Plt Count 233 10^3/uL (120.0-450.0) 07/25/16 06:55 MPV 9.4 fl (7.0-11.0) 07/25/16 06:55 Gran % 42.8 % (50.0-68.0) L 07/25/16 06:55 Lymph % (Auto) 43.2 % (22.0-35.0) H 07/25/16 06:55 [place] % (Auto) 9.6 % (1.0-6.0) H 07/25/16 06:55 Eos % (Auto) 3.9 % (1.5-5.0) 07/25/16 06:55 Baso % (Auto) 0.5 % (0.0-3.0) 07/25/16 06:55 Gran # 1.64 (1.4-6.5) 07/25/16 06:55 Lymph # 1.7 (1.2-3.4) 07/25/16 06:55 [place] # 0.4 (0.1-0.6) 07/25/16 06:55 Eos # 0.2 (0.0-0.7) 07/25/16 06:55 Baso # 0.02 K/mm3 (0.0-2.0) 07/25/16 06:55 PT 11.0 Seconds (9.9-11.8) 07/25/16 06:55 INR 1.02 (0.93-1.08) 07/25/16 06:55 APTT 26.1 Seconds (23.7-30.8) 07/25/16 06:55 Sodium 140 mmol/L (132-148) 07/25/16 06:55 Potassium 3.8 mmol/L (3.6-5.0) 07/25/16 06:55 Chloride 102 mmol/L (98-107) 07/25/16 06:55 Carbon Dioxide 28 mmol/L (21-33) 07/25/16 06:55 Anion Gap 14 (10-20) 07/25/16 06:55 BUN 15 mg/dL (7-21) 07/25/16 06:55 Creatinine 0.9 mg/dL (0.5-1.4) 07/25/16 06:55 Est GFR ( Amer) > 60 07/25/16 06:55 Est GFR (Non-Af Amer) > 60 07/25/16 06:55 Random Glucose 106 mg/dL (70-110) 07/25/16 06:55 Calcium 8.8 mg/dL (8.4-10.5) 07/25/16 06:55 Blood Type A POSITIVE 07/25/16 06:55 Antibody Screen Negative 07/25/16 06:55 BBK History Checked Patient has bt 07/25/16 06:55 - Hospital Course Hospital Course: 65 year old Kittitian speaking male with pmh of HTN, admitted to [facility] after cardiac cath procedure for planned stent in the RCA. Pt. underwent a cardiac cath last week which showed 3 vessel disease with JOYA placed in the LAD and circumflex. During his second cath, the stent could not be placed due to the RCA having muliple critical lesions including a 70-80% stenosis, followed by a 90% stenosis in the PDA. He also had a 90% ostial left main stenosis that was worse than seen previously. Pt. needed to be evaluated by a Cardio-thoracic surgeon for possible CABG and was transferred to [facility]. This is a brief account of his stay. For more information, please see his chart. - Date & Time of H&P Date of H&P: 07/26/16 Time of H&P: 10:55 Discharge Exam - Head Exam Head Exam: ATRAUMATIC, NORMOCEPHALIC - Eye Exam Eye Exam: EOMI, Normal appearance - ENT Exam ENT Exam: Mucous Membranes Moist - Neck Exam Neck exam: Full Rom - Respiratory Exam Respiratory Exam: Clear to PA & Lateral, NORMAL BREATHING PATTERN - Cardiovascular Exam Cardiovascular Exam: REGULAR RHYTHM, RRR, +S1, +S2. absent: JVD - GI/Abdominal Exam GI & Abdominal Exam: Normal Bowel Sounds. absent: Unremarkable - Back Exam Back exam: FULL ROM. absent: rash noted - Neurological Exam Neurological exam: Alert, Oriented x3 - Psychiatric Exam Psychiatric exam: Normal Affect, Normal Mood - Skin Skin Exam: Dry, Intact, Normal Color, Warm Discharge Plan - Follow Up Plan Condition: GOOD Disposition: Trans to Other Acute Care Hosp Referrals: Livia Moses APNPeterson [Primary Care Provider] - <Mitzy Beckham - Last Filed: 07/28/16 13:22> Provider - Provider Attending physician: Mitzy Beckham MD [facility] - Lab Results Lab Results: Most Recent Lab Values WBC 3.8 10^3/ul (4.5-11.0) L D 07/25/16 06:55 RBC 4.51 10^6/uL (3.5-6.1) 07/25/16 06:55 Hgb 13.8 gm/dL (14.0-18.0) L 07/25/16 06:55 Hct 38.7 % (42.0-52.0) L 07/25/16 06:55 MCV 85.8 fL (80.0-105.0) 07/25/16 06:55 MCH 30.6 pg (25.0-35.0) 07/25/16 06:55 MCHC 35.7 g/dl (31.0-37.0) 07/25/16 06:55 RDW 12.3 % (11.5-14.5) 07/25/16 06:55 Plt Count 233 10^3/uL (120.0-450.0) 07/25/16 06:55 MPV 9.4 fl (7.0-11.0) 07/25/16 06:55 Gran % 42.8 % (50.0-68.0) L 07/25/16 06:55 Lymph % (Auto) 43.2 % (22.0-35.0) H 07/25/16 06:55 [place] % (Auto) 9.6 % (1.0-6.0) H 07/25/16 06:55 Eos % (Auto) 3.9 % (1.5-5.0) 07/25/16 06:55 Baso % (Auto) 0.5 % (0.0-3.0) 07/25/16 06:55 Gran # 1.64 (1.4-6.5) 07/25/16 06:55 Lymph # 1.7 (1.2-3.4) 07/25/16 06:55 [place] # 0.4 (0.1-0.6) 07/25/16 06:55 Eos # 0.2 (0.0-0.7) 07/25/16 06:55 Baso # 0.02 K/mm3 (0.0-2.0) 07/25/16 06:55 PT 11.0 Seconds (9.9-11.8) 07/25/16 06:55 INR 1.02 (0.93-1.08) 07/25/16 06:55 APTT 26.1 Seconds (23.7-30.8) 07/25/16 06:55 Sodium 140 mmol/L (132-148) 07/25/16 06:55 Potassium 3.8 mmol/L (3.6-5.0) 07/25/16 06:55 Chloride 102 mmol/L (98-107) 07/25/16 06:55 Carbon Dioxide 28 mmol/L (21-33) 07/25/16 06:55 Anion Gap 14 (10-20) 07/25/16 06:55 BUN 15 mg/dL (7-21) 07/25/16 06:55 Creatinine 0.9 mg/dL (0.5-1.4) 07/25/16 06:55 Est GFR ( Amer) > 60 07/25/16 06:55 Est GFR (Non-Af Amer) > 60 07/25/16 06:55 Random Glucose 106 mg/dL (70-110) 07/25/16 06:55 Calcium 8.8 mg/dL (8.4-10.5) 07/25/16 06:55 Blood Type A POSITIVE 07/25/16 06:55 Antibody Screen Negative 07/25/16 06:55 BBK History Checked Patient has bt 07/25/16 06:55 Attending/Attestation - Attestation I have personally seen and examined this patient.: Yes I have fully participated in the care of the patient.: Yes I have reviewed all pertinent clinical information, including history, physical exam and plan: Yes Notes (Text): 07/28/16 13:21 hospitalist note; Patient seen and examined with resident. Agreed with resident's note with some exceptions. patient is a 65-year-old pmh of HTN, CAD stent is admitted post cardiac cath. Patient underwent a cardiac cath last week which showed 3 vessel disease with JOYA placed in the LAD and circumflex. found to have left main stenosis. LV function was normal. The patient came in today for outpatient cardiac cath by Dr. Gomez. cardiac cath revealed RCA 70-80% and left main over 90% stenosis. since there is critical left main stenosis the patient will be referred to [facility]. Patient will go to [facility] for CABG. Case discussed with cardioThoracic surgery by DR. gomez. Transfer to [facility] for CABG. The diagnosis and plan discussed with patient in detail via early education teacher. Diagnosis; Coronary artery disease Status post stent placement Hypertension
== END 2016-07-26 09:54 | disposition short-term general hospital (02) ==
LOC: CATH 06:03 → 2RSO 09:15 → CATH 07-26 09:54
PROVIDERS: ATTEND Internal Medicine
DX: I25.110 Atherosclerotic heart disease of native coronary artery with unstable angina pectoris (principal); I10 Essential (primary) hypertension; Z87.891 Personal history of nicotine dependence; Z95.5 Presence of coronary angioplasty implant and graft; Z91.013 Allergy to seafood
CPT/HCPCS: 36415; 80048; 85025; 85576; 85610; 85730; 86850; 86900; 93005; 93458; 99152; 99153; C1760; C1769; C2629; J0583; J1644; J2250; J3010; J7040 ×2; Q9967 ×2

== ENCOUNTER 2016-09-05 12:16 | Emergency (ER) | payer OTHER ==
[2016-09-05 12:22] VITALS: BMI 25.7
[2016-09-05 12:28] VITALS: BP 125/70; PULSE 64; RESP 18; TEMP 97.7; O2SAT 100
--- NOTE | 2016-09-05 12:48 | ED PDOC ---
Arrival/HPI <Jeromy Ha - Last Filed: 09/05/16 13:41> - General Historian: Patient - History of Present Illness Time/Duration: > month Symptom Onset: Other Symptom Course: Unchanged Context: Home <Mary Adler - Last Filed: 09/05/16 15:17> - General Chief Complaint: Lower Extremity Problem/Injury Time Seen by Provider: 09/05/16 12:29 - History of Present Illness Narrative History of Present Illness (Text): 09/05/16 12:49 65 yo male with PMH of cardiac bypass on July 27 presented to ED for right leg pain and swelling. Patient states that the pain is located in his below the calf. He states that the pain started after the surgery after placement of the J -P drain. Patient states the swelling is greater in his right leg then left. He states that he is able to ambulate normally. He also reports redness around the area where the J-p drain was located. He entry site of the drain has healed, and has not drainage. He denies any fever, chills, sob, n/v, abd pain, chest pain. Patient had lower extremity Ultrasound last which was negative however he states the pain has worsened since then. PMD: [facility] (Mary Adler) Past Medical History - Provider Review Nursing Documentation Reviewed: Yes - Infectious Disease Hx of Infectious Diseases: None - Cardiac Hx Cardiac Disorders: Yes Hx Hypertension: Yes Hx Pacemaker: No Other/Comment: CAD - Pulmonary Hx Respiratory Disorders: No - Neurological Hx Paralysis: No - HEENT Hx HEENT Disorder: No - Renal Hx Renal Disorder: No - Endocrine/Metabolic Hx Endocrine Disorders: No - Hematological/Oncological Hx Blood Transfusions: No - Integumentary Hx Dermatological Disorder: No - Musculoskeletal/Rheumatological Hx Musculoskeletal Disorders: Yes - Gastrointestinal Hx Gastrointestinal Disorders: No - Genitourinary/Gynecological Hx Genitourinary Disorders: No - Psychiatric Hx Emotional Abuse: No Hx Physical Abuse: No Hx Substance Use: No - Surgical History Hx Cardiac Catheterization: Yes (07/19/16 3 vessel disease received 2 stents) Hx Open Heart Surgery: Yes - Anesthesia Hx Anesthesia Reactions: No Hx Malignant Hyperthermia: No - Suicidal Assessment Feels Threatened In Home Enviroment: No <Mary Adler - Last Filed: 09/05/16 15:17> Family/Social History - Physician Review Nursing Documentation Reviewed: Yes Family/Social History: No Known Family HX Smoking Status: Former Smoker Hx Alcohol Use: No (quit 1988) Hx Substance Use: No <Mary Adler - Last Filed: 09/05/16 15:17> Allergies/Home Meds <Jeromy Ha - Last Filed: 09/05/16 13:41> <Mary Adler - Last Filed: 09/05/16 15:17> Allergies/Adverse Reactions: Allergies SALMON Allergy (Severe, Uncoded 09/05/16 12:22) VOMITING/DIARRHEA Home Medications: Home Meds Medication Instructions Recorded Confirmed Unobtainable 09/05/16 09/05/16 Review of Systems - Review of Systems Constitutional: Normal. absent: Fatigue, Fevers Eyes: Normal ENT: Normal. absent: Sore Throat, Rhinorrhea, Sinus Congestion Respiratory: Normal. absent: SOB, Cough, Wheezing Cardiovascular: Normal. absent: Chest Pain, Palpitations Gastrointestinal: Normal. absent: Abdominal Pain, Constipation, Diarrhea, Nausea, Vomiting Genitourinary Male: Normal. absent: Dysuria, Frequency, Hematuria Musculoskeletal: Normal. absent: Arthralgias, Back Pain Skin: Other (redness around insertion site of J-P drain ). absent: Rash, Pruritis Neurological: Normal. absent: Headache, Dizziness Endocrine: Normal. absent: Diaphoresis Hemo/Lymphatic: Normal. absent: Easy Bleeding, Easy Bruising Psychiatric: Normal <Mary Adler - Last Filed: 09/05/16 15:17> Physical Exam - Systems Exam Head: Present: Atraumatic, Normocephalic Pupils: Present: PERRL. No: Non-Reactive, Pinpoint Extroacular Muscles: Present: EOMI Conjunctiva: Present: Normal. No: Injected, Icteric Mouth: Present: Moist Mucous Membranes Neck: Present: Normal Range of Motion Respiratory/Chest: Present: Clear to Auscultation, Good Air Exchange. No: Respiratory Distress, Accessory Muscle Use, Wheezes, Rales, Rhonchi, Tachypneic Cardiovascular: Present: Regular Rate and Rhythm, Normal S1, S2. No: Murmurs, Tachycardic, Bradycardic Abdomen: Present: Normal Bowel Sounds. No: Tenderness, Distention, Peritoneal Signs Back: Present: Normal Inspection Upper Extremity: Present: Normal Inspection, NORMAL PULSES. No: Cyanosis, Edema , Tenderness, Swelling Lower Extremity: Present: Normal Inspection, NORMAL PULSES. No: Edema, Tenderness, Swelling Neurological: Present: GCS=15, CN II-XII Intact, Speech Normal. No: Motor Func Grossly Intact Skin: Present: Warm, Dry, Normal Color, Other (ecchymosis around former insertion site of j-p drain). No: Rashes Psychiatric: Present: Alert, Oriented x 3, Normal Insight, Normal Concentration <Mary Adler - Last Filed: 09/05/16 15:17> Vital Signs Temp Pulse Resp BP Pulse Ox 09/05/16 12:17 97.7 F 64 18 125/70 100 Medical Decision Making <Jeromy Ha - Last Filed: 09/05/16 13:41> <Mary Adler - Last Filed: 09/05/16 15:17> ED Course and Treatment: Patient Seen With Resident: In agreement with resident note which contains more details about the patient. Patient was seen and evaluated with resident. Came up with plan and treatment together. A 65 year old male with ecchymosis to right leg, in area of previous benja drain s/ p cabg. Additional HPI as noted by resident. On physical exam, patient has ecchymosis around former insertion site of j-p drain, no lower extremity swelling, tenderness, edema. Ordered labs and Ultrasound of lower extremity to r /o dvt. no e/o of infection. suspect normal healing 2/2 recent benja. no ttp over site. mild ecchymosis to right leg. pulses present. advise outpt follow up and return precauions no chest pain. shortness of [facility] complaints. 09/05/16 13:41 (Jeromy Ha) 09/05/16 13:00 Impression: 65 yo male with PMH of cardiac bypass on July 27 presented to ED for right leg pain and swelling. Differential diagnosis includes but not limited to: - DVT Plan: - CBC, CMP - PT, PTT - right LE Ultrasound progress: 09/05/16 15:13 - Labs were reviewed. - US FINDINGS: The visualized deep venous system of the right lower extremity is sonographically normal and compressible. Normal waveforms and augmentation are seen. There is no sonographic evidence for deep venous thrombosis in the visualized segments of the right lower extremity. IMPRESSION: 1. No sonographic evidence for deep venous thrombosis in the visualized segments of the right lower extremity. - Patient is stable for discharge. 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 If symptoms worsen he to to return to ED. (Mary Adler) - Lab Interpretations Lab Results: 09/05/16 13:00 09/05/16 13:00 Lab Results 09/05/16 13:00: Sodium 139, Potassium 3.7, Chloride 103, Carbon Dioxide 27, Anion Gap 13, BUN 14, Creatinine 0.9, Est GFR ( Amer) > 60, Est GFR (Non- Af Amer) > 60, Random Glucose 98, Calcium 8.9, Total Bilirubin 0.7, AST 62 H, ALT 90 H, Alkaline Phosphatase 93, Total Protein 6.7, Albumin 4.0, Globulin 2.7 , Albumin/Globulin Ratio 1.5 09/05/16 13:00: PT 10.8, INR 1.00, APTT 25.0 09/05/16 13:00: WBC 4.8 D, RBC 4.19, Hgb 12.2 L, Hct 36.6 L, MCV 87.4, MCH 29.1 , MCHC 33.3, RDW 12.9, Plt Count 250, MPV 8.9, Gran % 51.9, Lymph % (Auto) 35.9 H, Motley % (Auto) 8.6 H, Eos % (Auto) 3.2, Baso % (Auto) 0.4, Gran # 2.47, Lymph # 1.7, Motley # 0.4, Eos # 0.2, Baso # 0.02 - RAD Interpretation Radiology Orders: 09/05/16 12:55 DUPLEX LOWER EXTRM VEIN RIGHT [US] Stat - Scribe Statement The provider has reviewed the documentation as recorded by the Scribe <Jeromy Ha - Last Filed: 09/05/16 13:41> <Mary Adler - Last Filed: 09/05/16 15:17> - Scribe Statement Sana Vega Provider Scribe Attestation: All medical record entries made by the Scribe were at my direction and personally dictated by me. I have reviewed the chart and agree that the record accurately reflects my personal performance of the history, physical exam, medical decision making, and the department course for this patient. I have also personally directed, reviewed, and agree with the discharge instructions and disposition. (Jeromy Ha) Disposition/Present on Arrival - Present on Arrival Any Indicators Present on Arrival: No - Disposition Have Diagnosis and Disposition been Completed?: Yes Disposition Time: 13:42 <Jeromy Ha - Last Filed: 09/05/16 13:41> - Present on Arrival Any Indicators Present on Arrival: No History of DVT/PE: No History of Uncontrolled Diabetes: No Urinary Catheter: No History of Decub. Ulcer: No History Surgical Site Infection Following: None - Disposition Have Diagnosis and Disposition been Completed?: Yes <Mary Adler - Last Filed: 09/05/16 15:17> - Disposition Diagnosis: Superficial bruising of lower leg, Leg swelling Disposition: HOME/ ROUTINE Condition: STABLE Discharge Instructions (ExitCare): Leg Edema (ED), Leg Pain (ED) Print Language: INDIAN Additional Instructions: please follow up with your doctor. return to emergency room with worsening syptoms or concerns. you need to follow up with surgeon. return to emergency room with worsening symptoms or concenrs. Referrals: Livia Moses APN-C [Primary Care Provider] - Follow up with primary
[2016-09-05 13:18] LABS: ADD MANUAL DIFF? NO
[2016-09-05 13:26] LABS: BASO # 0.02 K/mm3 (0.0-2.0); BASO % 0.4 % (0.0-3.0); EOS # 0.2 (0.0-0.7); EOS % 3.2 % (1.5-5.0); GRAN # 2.47 (1.4-6.5); GRAN % 51.9 % (50.0-68.0); HEMATOCRIT 36.6 % (42.0-52.0); LYMPH # 1.7 (1.2-3.4); LYMPH % 35.9 % (22.0-35.0); MEAN CELL VOLUME 87.4 fL (80.0-105.0); MEAN CORPUSCULAR HEMOGLOBIN 29.1 pg (25.0-35.0); MEAN CORPUSCULAR HGB CONC 33.3 g/dl (31.0-37.0); MEAN PLATELET VOLUME 8.9 fl (7.0-11.0); MONO # 0.4 (0.1-0.6); MONO % 8.6 % (1.0-6.0); PLATELET COUNT 250 10^3/uL (120.0-450.0); RED CELL DISTRIBUTION WIDTH 12.9 % (11.5-14.5); WHITE BLOOD COUNT 4.8 10^3/ul (4.5-11.0)
[2016-09-05 13:32] LABS: ALB/GLOB RATIO 1.5 (1.1-1.8); ALKALINE PHOSPHATASE 93 U/L (38-133); ALT/SGPT 90 U/L (7-56); AST/SGOT 62 U/L (15-59); BILIRUBIN,TOTAL 0.7 mg/dL (0.2-1.3); BLOOD UREA NITROGEN 14 mg/dL (7-21); CALCIUM 8.9 mg/dL (8.4-10.5); CARBON DIOXIDE 27 mmol/L (21-33); CHLORIDE 103 mmol/L (98-107); GFR AFRICAN-AMERICAN > 60; GLUCOSE,RANDOM 98 mg/dL (70-110); POTASSIUM 3.7 mmol/L (3.6-5.0); SODIUM 139 mmol/L (132-148); TOTAL PROTEIN 6.7 g/dL (5.8-8.3)
--- NOTE | 2016-09-05 14:36 | US ---
PROCEDURE: Right lower extremity venous US HISTORY: Leg pain and swelling. Evaluate for DVT. PHYSICIAN(S): Dagoberto Moses M.D. TECHNIQUE: Duplex sonography and color-flow Doppler with graded compression were used to evaluate the deep venous system of the right lower extremity. FINDINGS: The visualized deep venous system of the right lower extremity is sonographically normal and compressible. Normal waveforms and augmentation are seen. There is no sonographic evidence for deep venous thrombosis in the visualized segments of the right lower extremity. IMPRESSION: 1. No sonographic evidence for deep venous thrombosis in the visualized segments of the right lower extremity.
== END 2016-09-05 14:32 | disposition home or self-care (01) ==
LOC: ED 12:16
DX: M79.89 Other specified soft tissue disorders (principal); S80.11XA Contusion of right lower leg, initial encounter; X58.XXXA Exposure to other specified factors, initial encounter; I10 Essential (primary) hypertension

== ENCOUNTER 2016-10-04 13:14 | Emergency (ER) | payer MEDICAID ==
[2016-10-04 13:24] VITALS: RESP 18; TEMP 98.6
--- NOTE | 2016-10-04 13:48 | ED PDOC ---
Arrival/HPI <Geovanny Souza - Last Filed: 10/04/16 18:00> - History of Present Illness Time/Duration: < month <Betina Nroris - Last Filed: 10/05/16 08:15> - General Time Seen by Provider: 10/04/16 13:18 - History of Present Illness Narrative History of Present Illness (Text): 10/04/16 13:45 66 year old male with past medical history of hypertension, CAD s/p coronary bypass on on 07/27/16 at [facility] presents today for chest discomfort. Patient states he started experiencing bilateral chest numbness and itchiness intermittently for about 1 month. Patient denies having any chest pain or shortness of breath. Patient was last seen by his senior receptionist on stating that everything was fine. Patient decided to get evaluated today because his next senior receptionist appointment is on 10/17/16. Patient has slight right lower leg swelling which he got it right after his bypass surgery. It has not change since. Patient is compliant with all his medications. He further denies headache, fever, chills, coughs, abdominal pain, nausea, vomiting, or diarrhea. (Betina Norris) Past Medical History - Provider Review Nursing Documentation Reviewed: Yes - Infectious Disease Hx of Infectious Diseases: None - Cardiac Hx Cardiac Disorders: Yes Hx Hypertension: Yes Hx Pacemaker: No Other/Comment: CAD - Pulmonary Hx Respiratory Disorders: No - Neurological Hx Paralysis: No - HEENT Hx HEENT Disorder: No - Renal Hx Renal Disorder: No - Endocrine/Metabolic Hx Endocrine Disorders: No - Hematological/Oncological Hx Blood Transfusions: No - Integumentary Hx Dermatological Disorder: No - Musculoskeletal/Rheumatological Hx Musculoskeletal Disorders: Yes - Gastrointestinal Hx Gastrointestinal Disorders: No - Genitourinary/Gynecological Hx Genitourinary Disorders: No - Psychiatric Hx Emotional Abuse: No Hx Physical Abuse: No Hx Substance Use: No - Surgical History Hx Cardiac Catheterization: Yes (07/19/16 3 vessel disease received 2 stents) Hx Open Heart Surgery: Yes - Anesthesia Hx Anesthesia Reactions: No Hx Malignant Hyperthermia: No - Suicidal Assessment Feels Threatened In Home Enviroment: No <Betina Norris - Last Filed: 10/05/16 08:15> Family/Social History - Physician Review Nursing Documentation Reviewed: Yes Family/Social History: Hypertension Smoking Status: Former Smoker Hx Alcohol Use: No (quit 1988) Hx Substance Use: No <Betina Norris - Last Filed: 10/05/16 08:15> Allergies/Home Meds <Geovanny Souza - Last Filed: 10/04/16 18:00> <Betina Norris - Last Filed: 10/05/16 08:15> Allergies/Adverse Reactions: Allergies SALMON Allergy (Severe, Uncoded 09/05/16 12:22) VOMITING/DIARRHEA Home Medications: Home Meds Medication Instructions Recorded Confirmed Aspirin [Aspirin Chewable] 81 mg PO DAILY 10/04/16 10/04/16 Atorvastatin [Lipitor] PO DAILY 10/04/16 Clopidogrel [Plavix] 75 mg PO DAILY 10/04/16 10/04/16 Metoprolol Tartrate [Lopressor] 12.5 mg PO BID 10/04/16 10/04/16 Review of Systems - Physician Review All systems were reviewed & negative as marked: Yes - Review of Systems Constitutional: Normal. absent: Fatigue, Fevers, Night Sweats Eyes: Normal ENT: Normal Respiratory: Normal. absent: SOB, Cough Cardiovascular: Normal. absent: Chest Pain, Palpitations Gastrointestinal: Normal. absent: Abdominal Pain, Diarrhea, Nausea, Vomiting Genitourinary Male: Normal Musculoskeletal: Normal. absent: Back Pain, Joint Swelling Skin: Normal. absent: Pruritis, Skin Lesions, Laceration Neurological: Normal. absent: Headache, Dizziness, Focal Weakness Endocrine: Normal Hemo/Lymphatic: Normal Psychiatric: Normal <Betina Norris - Last Filed: 10/05/16 08:15> Physical Exam Vital Signs Reviewed: Yes Temperature: Afebrile Blood Pressure: Normal Pulse: Regular Respiratory Rate: Normal Appearance: Positive for: Well-Appearing, Non-Toxic, Comfortable Pain Distress: None Mental Status: Positive for: Alert and Oriented X 3 - Systems Exam Head: Present: Atraumatic, Normocephalic Pupils: Present: PERRL Extroacular Muscles: Present: EOMI Conjunctiva: Present: Normal Mouth: Present: Moist Mucous Membranes Neck: Present: Normal Range of Motion Respiratory/Chest: Present: Clear to Auscultation, Good Air Exchange. No: Respiratory Distress, Accessory Muscle Use Cardiovascular: Present: Regular Rate and Rhythm, Normal S1, S2. No: Murmurs Abdomen: Present: Normal Bowel Sounds. No: Tenderness, Distention, Peritoneal Signs Back: Present: Normal Inspection Upper Extremity: Present: Normal Inspection, NORMAL PULSES, Neurovascularly Intact. No: Cyanosis, Edema Lower Extremity: Present: NORMAL PULSES, Normal ROM, Swelling (slight lower right leg swelling ), Neurovascularly Intact. No: Erythema, Deformity Neurological: Present: GCS=15, CN II-XII Intact, Speech Normal Skin: Present: Warm, Dry, Normal Color, Other (well healed vertical incision scar from CABG approximately 15cm in length, no erythema, no open wound appreciated). No: Rashes Psychiatric: Present: Alert, Oriented x 3, Normal Insight, Normal Concentration <Betina Norris - Last Filed: 10/05/16 08:15> Vital Signs Temp Pulse Pulse Resp BP BP Pulse Ox 10/04/16 18:27 64 18 118/74 99 10/04/16 15:45 56 L 18 123/71 97 10/04/16 14:06 59 L 131/65 10/04/16 13:23 98.6 F 61 18 131/65 98 Medical Decision Making <Geovanny Souza - Last Filed: 10/04/16 18:00> <Betina Norris - Last Filed: 10/05/16 08:15> ED Course and Treatment: 10/04/16 14:08 -CBC, CMP -Cardiac Iso -CXR -PT/PTT DDx: Scar tissue irritation, GERD, ACS Prior visit: 09/05/16 for right leg swelling, negative for DVT 66 year old male with PMHx of HTN, CAD s/p coronary bypass on on 07/27/16 presents with bilateral chest numbness and itchiness intermittently for about 1 month. Patient denies having any chest pain or shortness of breath. Labs and imaging reviewed. (Betina Norris) - Lab Interpretations Lab Results: 10/04/16 14:24 10/04/16 14:24 Lab Results 10/04/16 14:24: Sodium 142, Potassium 3.9, Chloride 103, Carbon Dioxide 28, Anion Gap 15, BUN 13, Creatinine 0.9, Est GFR ( Amer) > 60, Est GFR (Non- Af Amer) > 60, Random Glucose 107, Calcium 9.2, Total Bilirubin 0.8, AST 56, ALT 74 H, Alkaline Phosphatase 92, Lactate Dehydrogenase 530, Total Creatine Kinase 61, Troponin I < 0.01, Total Protein 7.3, Albumin 4.3, Globulin 3.0, Albumin/Globulin Ratio 1.4 10/04/16 14:24: PT 10.8, INR 1.00, APTT 24.8 10/04/16 14:24: WBC 4.1 L, RBC 4.55, Hgb 13.4 L, Hct 38.4 L, MCV 84.4, MCH 29.5 , MCHC 34.9, RDW 13.0, Plt Count 232, MPV 8.8, Gran % 48.7 L, Lymph % (Auto) 37.3 H, Granite % (Auto) 7.9 H, Eos % (Auto) 5.9 H, Baso % (Auto) 0.2, Gran # 1.97 , Lymph # 1.5, Granite # 0.3, Eos # 0.2, Baso # 0.01 - RAD Interpretation Radiology Orders: 10/04/16 13:49 CHEST PORTABLE [RAD] Stat - EKG Interpretation EKG Interpretation (Text): 10/04/16 14:24 Sinus bradycardia at 57 bpm, no ST changes appreciated. Read by me. (Betina Norris) - PA / COMMUNITY OUTREACH WORKER / Resident Statement JENNIFER has reviewed & agrees with the documentation as recorded. JENNIFER has examined the patient and agrees with the treatment plan. <Geovanny Souza - Last Filed: 10/04/16 18:00> - PA / COMMUNITY OUTREACH WORKER / Resident Statement JENNIFER has reviewed & agrees with the documentation as recorded. JENNIFER has examined the patient and agrees with the treatment plan. <Betina Norris - Last Filed: 10/05/16 08:15> Disposition/Present on Arrival <Geovanny Souza - Last Filed: 10/04/16 18:00> - Present on Arrival Any Indicators Present on Arrival: No History of DVT/PE: No History of Uncontrolled Diabetes: No Urinary Catheter: No History Surgical Site Infection Following: None - Disposition Have Diagnosis and Disposition been Completed?: Yes Disposition Time: 17:11 Patient Plan: Discharge <Betina Norris - Last Filed: 10/05/16 08:15> - Disposition Diagnosis: Discomfort in chest Disposition: HOME/ ROUTINE Condition: FAIR Discharge Instructions (ExitCare): Chest Pain (ED) Print Language: CYPRIOT Additional Instructions: Sundeep Spivey, thank you for letting us take care of you today. Your provider was Dr. Souza. You were treated for chest discomfort. The emergency medical care you received today was directed at your acute symptoms. If you were prescribed any medication, please fill it and take as directed. It may take several days for your symptoms to resolve. Return to the Emergency Department if your symptoms worsen, do not improve, or if you have any other problems. Please contact your doctor or call one of the physicians/clinics you have been referred to that are listed on the Patient Visit Information form that is included in your discharge packet. Bring any paperwork you were given at discharge with you along with any medications you are taking to your follow up visit. Our treatment cannot replace ongoing medical care by a primary care provider (PCP) outside of the emergency department. Thank you for allowing the [facility] team to be part of your care today. Please make an appointment to see your senior receptionist after ED discharge. Take over the counter Tylenol if you experience pain the area. Referrals: PCP,NO [Primary Care Provider] - Follow up with primary
[2016-10-04 13:52] VITALS: BMI 27.4
[2016-10-04 14:27] LABS: BASO # 0.01 K/mm3 (0.0-2.0); BASO % 0.2 % (0.0-3.0); EOS # 0.2 (0.0-0.7); EOS % 5.9 % (1.5-5.0); GRAN # 1.97 (1.4-6.5); GRAN % 48.7 % (50.0-68.0); HEMOGLOBIN 13.4 gm/dL (14.0-18.0); LYMPH # 1.5 (1.2-3.4); LYMPH % 37.3 % (22.0-35.0); MEAN CELL VOLUME 84.4 fL (80.0-105.0); MEAN CORPUSCULAR HEMOGLOBIN 29.5 pg (25.0-35.0); MEAN CORPUSCULAR HGB CONC 34.9 g/dl (31.0-37.0); MEAN PLATELET VOLUME 8.8 fl (7.0-11.0); MONO # 0.3 (0.1-0.6); MONO % 7.9 % (1.0-6.0); PLATELET COUNT 232 10^3/uL (120.0-450.0); RBC 4.55 10^6/uL (3.5-6.1); WHITE BLOOD COUNT 4.1 10^3/ul (4.5-11.0)
[2016-10-04 14:38] LABS: PARTIAL THROMBOPLASTIN TIME 24.8 Seconds (23.7-30.8); PROTHROMBIN TIME 10.8 Seconds (9.9-11.8)
[2016-10-04 14:42] LABS: ALB/GLOB RATIO 1.4 (1.1-1.8); ALBUMIN 4.3 g/dL (3.0-4.8); ALT/SGPT 74 U/L (7-56); AST/SGOT 56 U/L (15-59); BLOOD UREA NITROGEN 13 mg/dL (7-21); CALCIUM 9.2 mg/dL (8.4-10.5); GFR AFRICAN-AMERICAN > 60; GFR NON-AFRICAN AMERICAN > 60
[2016-10-04 15:00] LABS: TROPONIN I < 0.01 ng/mL
--- NOTE | 2016-10-04 15:16 | RAD ---
HISTORY: chest discomfort, h/o bypass COMPARISON: 11/26/2015 FINDINGS: LUNGS: No active pulmonary disease. PLEURA: No significant pleural effusion identified, no pneumothorax apparent. CARDIOVASCULAR: Normal. OSSEOUS STRUCTURES: Sternal wires VISUALIZED UPPER ABDOMEN: Normal. OTHER FINDINGS: None. IMPRESSION: No active disease.
[2016-10-04 18:27] VITALS: BP 118/74; PULSE 64; O2SAT 99
--- NOTE | 2016-10-04 20:52 | CARD ---
APPROVED REPORT EKG Measurement Heart [id number] <Conclusion> Sinus bradycardia Nonspecific T wave abnormality Abnormal ECG
== END 2016-10-04 18:30 | disposition home or self-care (01) ==
LOC: ED 13:14
DX: R07.9 Chest pain, unspecified (principal); I25.10 Atherosclerotic heart disease of native coronary artery without angina pectoris; I10 Essential (primary) hypertension; Z95.1 Presence of aortocoronary bypass graft; Z87.891 Personal history of nicotine dependence

== ENCOUNTER 2017-01-23 12:46 | Emergency (ER) | payer MEDICARE, MEDICAID ==
[2017-01-23 12:57] VITALS: BMI 26.9
[2017-01-23 12:58] VITALS: RESP 18; TEMP 98.6
--- NOTE | 2017-01-23 14:24 | ED PDOC ---
Arrival/HPI - General Historian: Patient EM Caveat: Acuity of Condition - History of Present Illness Time/Duration: Prior to Arrival, Other (two days) Symptom Onset: Sudden Symptom Course: Unchanged Quality: Aching Severity Level: 2 Activities at Onset: Rest, Light Context: Standing <Jennifer Romero - Last Filed: 01/23/17 23:02> <Naman Del Toro Candice - Last Filed: 01/24/17 19:21> - General Chief Complaint: Abnormal Skin Integrity Time Seen by Provider: 01/23/17 12:51 - History of Present Illness Narrative History of Present Illness (Text): 01/23/17 14:39 66 years old male with PMH CAD s/p CABG (6 months ago), HTN, presents for rash on neck area. Pt noticed it yesterday morning while combing his hair. He describes it as itchy, slightly erythematous, no swelling or discharge. Pt has not had anything like this before. He denies using any new caps, lotions, shaving, soap, bed bugs at home. No one else at home has similar symptoms. No pets at home. No recent travel. Pt also complains of left sided chest pain for past month, describes it as dull and achy, worsens with any position changes, not associated with breathing. He currently denies any cp. Pt denies fever, chills, nausea, vomiting, sob, palpitations, diaphoresis, abdominal pain, urinary symptoms, calf pain. Pt had a stress test last Saturday, and is scheduled to do a cardiac cath soon. He went to his Launch Manager this morning, and he said everything was fine. PCP [facility] (does not remember her name) (Jennifer Romero) Associated Symptoms (Text): 01/23/17 14:52 Pt denies fever, chills, nausea, vomiting, sob, palpitations, diaphoresis, abdominal pain, urinary symptoms, calf pain. (Jennifer Romero) Past Medical History - Provider Review Nursing Documentation Reviewed: Yes - Infectious Disease Hx of Infectious Diseases: None - Cardiac Hx Hypertension: Yes - Pulmonary Hx Respiratory Disorders: No - Neurological Hx Paralysis: No - HEENT Hx HEENT Disorder: No - Renal Hx Renal Disorder: No - Endocrine/Metabolic Hx Endocrine Disorders: No - Hematological/Oncological Hx Blood Transfusions: No - Integumentary Hx Dermatological Disorder: No - Musculoskeletal/Rheumatological Hx Musculoskeletal Disorders: Yes - Gastrointestinal Hx Gastrointestinal Disorders: No - Genitourinary/Gynecological Hx Genitourinary Disorders: No - Psychiatric Hx Emotional Abuse: No Hx Physical Abuse: No Hx Substance Use: No - Surgical History Hx Coronary Artery Bypass Graft: Yes - Anesthesia Hx Anesthesia Reactions: No Hx Malignant Hyperthermia: No - Suicidal Assessment Feels Threatened In Home Enviroment: No <Jennifer Romero - Last Filed: 01/23/17 23:02> Family/Social History - Physician Review Nursing Documentation Reviewed: Yes Family/Social History: No Known Family HX Smoking Status: Former Smoker Hx Alcohol Use: No (quit 1988) Hx Substance Use: No <Jennifer Romero - Last Filed: 01/23/17 23:02> Allergies/Home Meds <Jennifer Romero - Last Filed: 01/23/17 23:02> <Naman Del Toro - Last Filed: 01/24/17 19:21> Allergies/Adverse Reactions: Allergies SALMON Allergy (Severe, Uncoded 09/05/16 12:22) VOMITING/DIARRHEA Home Medications: Home Meds Medication Instructions Recorded Confirmed Aspirin [Aspirin Chewable] 81 mg PO DAILY 10/04/16 01/17/17 Atorvastatin [Lipitor] 40 mg PO DAILY 10/04/16 01/17/17 Clopidogrel [Plavix] 75 mg PO DAILY 10/04/16 01/17/17 Metoprolol Tartrate [Lopressor] 25 mg PO DAILY 10/04/16 01/17/17 oxyCODONE/Acetaminophen [Percocet 1 tab PO Q4 PRN 01/17/17 01/17/17 5/325 mg Tab] Review of Systems - Physician Review All systems were reviewed & negative as marked: Yes - Review of Systems Constitutional: absent: Fatigue, Fevers Eyes: absent: Vision Changes ENT: absent: Hearing Changes Respiratory: absent: SOB, Cough Cardiovascular: Chest Pain (reproducible). absent: Palpitations, HYATT, Orthopnea , Syncope Gastrointestinal: absent: Abdominal Pain, Constipation, Diarrhea, Nausea, Vomiting Genitourinary Male: absent: Dysuria, Frequency, Hematuria Musculoskeletal: absent: Back Pain Skin: Rash (left lower scalp area), Pruritis Neurological: absent: Headache, Dizziness, Focal Weakness Endocrine: absent: Diaphoresis Psychiatric: Anxiety <Jennifer Romero - Last Filed: 01/23/17 23:02> Physical Exam Vital Signs Reviewed: Yes Temperature: Afebrile Blood Pressure: Normal Pulse: Regular Respiratory Rate: Normal Appearance: Positive for: Well-Appearing Pain Distress: None Mental Status: Positive for: Alert and Oriented X 3 - Systems Exam Head: Present: Atraumatic, Normocephalic, Other (left sided scapular area papular rash, mildly ttp, 3 cm x 1 cm, mildly erythematous, no swelling or discharge) Pupils: Present: PERRL Extroacular Muscles: Present: EOMI Conjunctiva: Present: Normal Mouth: Present: Moist Mucous Membranes Pharnyx: No: ERYTHEMA Neck: Present: Normal Range of Motion Respiratory/Chest: Present: Clear to Auscultation. No: Respiratory Distress Cardiovascular: Present: Regular Rate and Rhythm, Normal S1, S2, Other (tender to palpation on left sided chest). No: Murmurs Abdomen: Present: Normal Bowel Sounds. No: Tenderness Upper Extremity: Present: Normal Inspection. No: Edema Lower Extremity: Present: Normal Inspection, NORMAL PULSES. No: CALF TENDERNESS Neurological: Present: GCS=15, Speech Normal Skin: Present: Warm, Dry Psychiatric: Present: Alert, Oriented x 3, Anxious <Jennifer Romero - Last Filed: 01/23/17 23:02> Vital Signs Temp Pulse Resp BP Pulse Ox 01/23/17 14:25 69 18 125/68 98 01/23/17 12:58 98.6 F 74 18 128/70 97 Medical Decision Making <Jennifer Romero - Last Filed: 01/23/17 23:02> <Naman Del Toro - Last Filed: 01/24/17 19:21> ED Course and Treatment: 01/23/17 14:25 66 years old male presents for right sided scapular rash, and reproducible chest pain: - Keflex and hydrocortisone cream - reassess and dispo - Follow up with Cardio outpatient 01/23/17 14:52 Pt feels better, will discharge on keflex and hydrocortisone ointment. Follow up with PCP and Launch Manager within 2-3 days. (Jennifer Romero) Patient Seen With Resident: In agreement with resident note which contains more details about the patient. Patient was seen and evaluated with resident. Came up with plan and treatment together. (Naman Del Toro) - Medication Orders Current Medication Orders: Discontinued Medications Cephalexin Monohydrate (Keflex) 500 mg PO STAT STA PRN Reason: Protocol Stop: 01/23/17 13:33 Last Admin: 01/23/17 14:15 Dose: 500 mg Hydrocortisone (Cortizone 1% Oint) 0 gm TOP STAT STA Stop: 01/23/17 13:31 - PA / EMBOSSING PRESS OPERATOR [employer] / Resident Statement JENNIFER has reviewed & agrees with the documentation as recorded. JENNIFER has examined the patient and agrees with the treatment plan. <Jennifer Romero - Last Filed: 01/23/17 23:02> - PA / EMBOSSING PRESS OPERATOR [employer] / Resident Statement JENNIFER has examined the patient and agrees with the treatment plan. <Naman Del Toro - Last Filed: 01/24/17 19:21> Disposition/Present on Arrival - Present on Arrival Any Indicators Present on Arrival: No History of DVT/PE: No History of Uncontrolled Diabetes: No Urinary Catheter: No History Surgical Site Infection Following: None - Disposition Have Diagnosis and Disposition been Completed?: Yes Disposition Time: 14:20 Patient Plan: Discharge <Jennifer Romero - Last Filed: 01/23/17 23:02> <Naman Del Toro - Last Filed: 01/24/17 19:21> - Disposition Diagnosis: Folliculitis, Rash Disposition: HOME/ ROUTINE Condition: FAIR Discharge Instructions (ExitCare): Folliculitis (ED), Dermatitis (ED) Print Language: LITHUANIAN Additional Instructions: - Please take Keflex for 10 days and apply hydrocortisone cream to the area. - Follow up with Cardio in 1-2 days. - Follow up with PCP in 2-3 days. - Please return to the ER if symptoms return Prescriptions: Cephalexin [cephalexin] 500 mg PO QID 10 Days cap Hydrocortisone 1% Oint [Cortizone 1% Oint] 1 appl TP BID 10 Days tube Referrals: Hilario Luz [Primary Care Provider] - Follow up with primary Forms: Olo ([place] Citizen)
[2017-01-23 14:25] VITALS: BP 125/68; PULSE 69; O2SAT 98
== END 2017-01-23 14:30 | disposition home or self-care (01) ==
LOC: ED 12:46
DX: L73.9 Follicular disorder, unspecified (principal); R21 Rash and other nonspecific skin eruption; I10 Essential (primary) hypertension; I25.10 Atherosclerotic heart disease of native coronary artery without angina pectoris; Z95.1 Presence of aortocoronary bypass graft; Z87.891 Personal history of nicotine dependence

== ENCOUNTER 2017-02-05 11:33 | Inpatient (IN) | payer MEDICARE, MEDICAID ==
[2017-02-05 11:38] VITALS: BMI 29.1
--- NOTE | 2017-02-05 12:24 | ED PDOC ---
Arrival/HPI - General Historian: Patient - History of Present Illness Time/Duration: < week Symptom Onset: Gradual Symptom Course: Worsening Activities at Onset: Rest <Carmela Barreto - Last Filed: 02/05/17 14:41> <Azul Piña - Last Filed: 02/05/17 15:33> - General Chief Complaint: Cough, Cold, Congestion Time Seen by Provider: 02/05/17 11:35 - History of Present Illness Narrative History of Present Illness (Text): 66 year old male with PMHx of HTN, CAD, hx of JOYA, and hx of coronary Bypass () who presents the ED with complaints of increasing chest discomfort secondary to a productive non-bloody cough. Patient states that since his bypass has he has had mild chest pain with chest wall itchiness. Within the last few days he states that his chest pain has gotten worse due to the cough. He denies any fevers, chills, body aches, radiation of pain, SOB, or sick contacts. ROS POSITIVES: Chest pain, productive cough w/ clear sputum NEGATIVES: fevers, chills, body aches, radiation of chest pain, SOB, sick contacts, nausea, vomiting, diarrhea, constipation, urinary symptoms. PMH: CAD, HTN, PSH: Coronary bypass (07/27/16), JOYA stent Allergies: Denies. [place] per Chart. Social: Denies tobacco, alcohol, or illicit drug use Hos: Most Recent - [facility] for coronary bypass 07/27/16 Meds: Reviewed 02/05/17 12:15 02/05/17 12:24 02/05/17 12:26 (Carmela Barreto) Past Medical History - Provider Review Nursing Documentation Reviewed: Yes - Infectious Disease Hx of Infectious Diseases: None - Cardiac Hx Hypertension: Yes Other/Comment: CABG x 3 - Pulmonary Hx Respiratory Disorders: No - Neurological Hx Paralysis: No - HEENT Hx HEENT Disorder: No - Renal Hx Renal Disorder: No - Endocrine/Metabolic Hx Endocrine Disorders: No - Hematological/Oncological Hx Blood Transfusions: No - Integumentary Hx Dermatological Disorder: No - Musculoskeletal/Rheumatological Hx Musculoskeletal Disorders: Yes - Gastrointestinal Hx Gastrointestinal Disorders: No - Genitourinary/Gynecological Hx Genitourinary Disorders: No - Psychiatric Hx Emotional Abuse: No Hx Physical Abuse: No Hx Substance Use: No - Surgical History Hx Coronary Artery Bypass Graft: Yes (x 3) Hx Open Heart Surgery: Yes - Anesthesia Hx Anesthesia: Yes Hx Anesthesia Reactions: No Hx Malignant Hyperthermia: No - Suicidal Assessment Feels Threatened In Home Enviroment: No <Marta Barretogunner - Last Filed: 02/05/17 14:41> - Provider Review Nursing Documentation Reviewed: Yes <AyanaNahunbeth - Last Filed: 02/05/17 15:33> Family/Social History - Physician Review Nursing Documentation Reviewed: Yes Family/Social History: No Known Family HX Smoking Status: Former Smoker Hx Alcohol Use: No (quit 1988) Hx Substance Use: No <Marta Barretogunner - Last Filed: 02/05/17 14:41> Allergies/Home Meds <MichaelMarta finngunner - Last Filed: 02/05/17 14:41> <AyanaAzul - Last Filed: 02/05/17 15:33> Allergies/Adverse Reactions: Allergies SALMON Allergy (Severe, Uncoded 09/05/16 12:22) VOMITING/DIARRHEA Home Medications: Home Meds Medication Instructions Recorded Confirmed Aspirin [Aspirin Chewable] 81 mg PO DAILY 10/04/16 02/05/17 Atorvastatin [Lipitor] 40 mg PO DAILY 10/04/16 02/05/17 Clopidogrel [Plavix] 75 mg PO DAILY 10/04/16 02/05/17 Metoprolol Tartrate [Lopressor] 25 mg PO DAILY 10/04/16 02/05/17 Review of Systems - Physician Review All systems were reviewed & negative as marked: Yes (As per HPI) - Review of Systems Constitutional: Normal Gastrointestinal: Normal <Marta Barretogunner - Last Filed: 02/05/17 14:41> Physical Exam Vital Signs Reviewed: Yes Temperature: Afebrile Blood Pressure: Hypertensive Pulse: Regular Respiratory Rate: Normal Appearance: Positive for: Well-Appearing, Non-Toxic, Comfortable Pain Distress: Mild Mental Status: Positive for: Alert and Oriented X 3, Agitated - Systems Exam Head: Present: Atraumatic Extroacular Muscles: Present: EOMI Conjunctiva: Present: Normal Mouth: Present: Moist Mucous Membranes Pharnyx: Present: Normal Respiratory/Chest: Present: Wheezes, Tender to Palpation (Left chest wall and sternum at bypass scar site. ). No: Respiratory Distress, Accessory Muscle Use , Decreased Breath Sounds, Rhonchi Cardiovascular: Present: Regular Rate and Rhythm, Normal S1, S2. No: Murmurs, Irregular Rhythm, Tachycardic, Bradycardic Abdomen: Present: Normal Bowel Sounds. No: Tenderness, Distention Upper Extremity: Present: Capillary Refill < 2s Lower Extremity: Present: CALF TENDERNESS. No: Edema, Tenderness Neurological: Present: GCS=15, Speech Normal Skin: Present: Warm, Dry, Normal Color Psychiatric: Present: Alert, Oriented x 3 <Carmela Barreto - Last Filed: 02/05/17 14:41> Vital Signs Reviewed: Yes <Azul Piña - Last Filed: 02/05/17 15:33> Vital Signs Temp Pulse Resp BP Pulse Ox 02/05/17 13:55 57 L 17 125/73 97 02/05/17 11:48 97.9 F 60 17 155/70 H 98 Medical Decision Making <Carmela Barreto - Last Filed: 02/05/17 14:41> - EKG Interpretation Interpreted by ED Physician: Yes Type: 12 lead EKG Comparison: Similar to previous EKG (02/05/17.) <Azul Piña - Last Filed: 02/05/17 15:33> ED Course and Treatment: 66 year old male with PMHx of HTN, CAD, s/p coronary bypass presents to the ED with cough and chest discomfort. --BNP --Cardio Iso --CMP --Lipase --Mg --CBC --PT/PTT --CXR --UA -Reassess and disposition. Reassessment Lipase - 251 BNP - WNL CXR - No Active Disease Troponins - NEGATIVE Admit to [facility] for Observation (Carmela Barreto) 02/05/17 14:32 Patient Seen With Resident: In agreement with resident note which contains more details about the patient. Patient was seen and evaluated with resident. Came up with plan and treatment together. The patient is a 66 year old male with a history of hypertension, CAD , and coronary bypass, presents to the emergency department with complaints of cough and chest discomfort. The patient's chest pain is atypical but concerning given his known very significant history of CAD and very recent stress test on 01/17/17 which was suspicious for ischemia, which has not been addressed. Will need further observation and cardiology consult. The patient' s treatment plan includes Labs, Chest X-ray, and Urinalysis. The patient will be observed on telemetry. Case was discussed with on-call physician, Dr. Santamaria, for placement on his service. (Azul Piña) - Lab Interpretations Lab Results: 02/05/17 11:35 02/05/17 11:35 Lab Results 02/05/17 11:35: Sodium 139, Potassium 4.0, Chloride 103, Carbon Dioxide 25, Anion Gap 15, BUN 16, Creatinine 1.0, Est GFR ( Amer) > 60, Est GFR (Non- Af Amer) > 60, Random Glucose 113 H, Calcium 9.0, Magnesium 1.8, Total Bilirubin 1.2, AST 52, ALT 81 H, Alkaline Phosphatase 94, Lactate Dehydrogenase 544, Total Creatine Kinase 122, Troponin I < 0.01, NT-Pro-B Natriuret Pep 79.6, Total Protein 7.0, Albumin 4.2, Globulin 2.7, Albumin/Globulin Ratio 1.6, Lipase 251 02/05/17 11:35: PT 12.8 H, INR 1.16 H, APTT 29.5 02/05/17 11:35: WBC 4.6, RBC 4.41, Hgb 13.4 L, Hct 38.7 L, MCV 87.8, MCH 30.4, MCHC 34.6, RDW 12.4, Plt Count 234, MPV 9.7, Gran % 51.4, Lymph % (Auto) 38.2 H , [place] % (Auto) 7.6 H, Eos % (Auto) 2.6, Baso % (Auto) 0.2, Gran # 2.35, Lymph # 1.8, Coos # 0.4, Eos # 0.1, Baso # 0.01 - RAD Interpretation Radiology Orders: 02/05/17 12:11 CHEST PORTABLE [RAD] Stat - EKG Interpretation EKG Interpretation (Text): 02/05/17 15:30 sinus elodia @ 57; normal intervals; normal axisl inverted T wave in v4, not present on previous; no other ST/T changes. (Azul Piña) - Medication Orders Current Medication Orders: Discontinued Medications Albuterol/Ipratropium (Duoneb 3 Mg/0.5 Mg (3 Ml) Ud) 3 ml IH STAT STA Stop: 02/05/17 12:45 Last Admin: 02/05/17 13:55 Dose: 3 ml Methylprednisolone (Solu-Medrol) 125 mg IVP STAT STA Stop: 02/05/17 12:43 Last Admin: 02/05/17 13:55 Dose: 125 mg IVP Administration Document 02/05/17 13:55 SF (Rec: 02/05/17 13:56 SF [id number]) Charges for Administration # of IVP Administrations 1 <Carmela Barreto - Last Filed: 02/05/17 14:41> - PA / CLIENT CONSULTANT / Resident Statement MD/DO has reviewed & agrees with the documentation as recorded. MD/DO has examined the patient and agrees with the treatment plan. - Scribe Statement The provider has reviewed the documentation as recorded by the Scribe <Azul Piña - Last Filed: 02/05/17 15:33> - Scribe Statement Magalis Palmer Provider Scribe Attestation: All medical record entries made by the Scribe were at my direction and personally dictated by me. I have reviewed the chart and agree that the record accurately reflects my personal performance of the history, physical exam, medical decision making, and the department course for this patient. I have also personally directed, reviewed, and agree with the discharge instructions and disposition. (Azul Piña) Disposition/Present on Arrival - Present on Arrival Any Indicators Present on Arrival: No History of DVT/PE: No History of Uncontrolled Diabetes: No Urinary Catheter: No History of Decub. Ulcer: No History Surgical Site Infection Following: None - Disposition Have Diagnosis and Disposition been Completed?: Yes Disposition Time: 13:58 Patient Plan: Telemetry <Carmela Barreto - Last Filed: 02/05/17 14:41> <Azul Piña - Last Filed: 02/05/17 15:33> - Disposition Diagnosis: Chest pain Disposition: HOSPITALIZED Patient Problems: Current Active Problems Problem Status Onset Chest pain Acute Condition: STABLE
[2017-02-05 12:29] LABS: ALB/GLOB RATIO 1.6 (1.1-1.8); ALKALINE PHOSPHATASE 94 U/L (38-126); ALT/SGPT 81 U/L (7-56); AST/SGOT 52 U/L (17-59); BILIRUBIN,TOTAL 1.2 mg/dL (0.2-1.3); BLOOD UREA NITROGEN 16 mg/dL (7-21); CARBON DIOXIDE 25 mmol/L (21-33); CHLORIDE 103 mmol/L (98-107); GFR AFRICAN-AMERICAN > 60; GLUCOSE,RANDOM 113 mg/dL (70-110); LIPASE 251 U/L (23-300); MAGNESIUM 1.8 mg/dL (1.7-2.2); SODIUM 139 mmol/L (132-148)
[2017-02-05 12:32] LABS: BASO # 0.01 K/mm3 (0.0-2.0); BASO % 0.2 % (0.0-3.0); EOS # 0.1 (0.0-0.7); EOS % 2.6 % (1.5-5.0); GRAN # 2.35 (1.4-6.5); GRAN % 51.4 % (50.0-68.0); HEMATOCRIT 38.7 % (42.0-52.0); LYMPH # 1.8 (1.2-3.4); LYMPH % 38.2 % (22.0-35.0); MEAN CELL VOLUME 87.8 fl (80.0-105.0); MEAN CORPUSCULAR HEMOGLOBIN 30.4 pg (25.0-35.0); MEAN CORPUSCULAR HGB CONC 34.6 g/dl (31.0-37.0); MEAN PLATELET VOLUME 9.7 fl (7.0-11.0); MONO # 0.4 (0.1-0.6); MONO % 7.6 % (1.0-6.0); RED CELL DISTRIBUTION WIDTH 12.4 % (11.5-14.5); WHITE BLOOD COUNT 4.6 10^3/ul (4.5-11.0)
[2017-02-05 12:39] LABS: INR 1.16 (0.93-1.08); PARTIAL THROMBOPLASTIN TIME 29.5 Seconds (25.1-36.5)
[2017-02-05 12:40] LABS: TROPONIN I < 0.01 ng/mL
[2017-02-05] MEDS ORDERED: Albuterol-Ipratrop 3 mg / 0.5 (3 ml) UD IH STA (12:44)
--- NOTE | 2017-02-05 13:21 | RAD ---
HISTORY: chest pain COMPARISON: 10/04/2016 FINDINGS: LUNGS: No active pulmonary disease. PLEURA: No significant pleural effusion identified, no pneumothorax apparent. CARDIOVASCULAR: Normal heart size. Status post CABG. No congestive change. OSSEOUS STRUCTURES: No significant abnormalities. VISUALIZED UPPER ABDOMEN: Normal. OTHER FINDINGS: None. IMPRESSION: No active disease.
[2017-02-05 15:43] LABS: PH,URINE 6.5 (4.7-8.0); URINE BILIRUBIN NEGATIVE (NEGATIVE); URINE BLOOD NEGATIVE (NEGATIVE); URINE GLUCOSE (UA) NEGATIVE (NEGATIVE); URINE KETONE NEGATIVE (NEGATIVE); URINE LEUKOCYTE ESTERASE NEGATIVE Leu/uL (NEGATIVE); URINE PROTEIN NEGATIVE mg/dL (<30 mg/dL); URINE UROBILINOGEN 0.2 E.U./dL (<1 E.U./dL)
[2017-02-05 15:48] LABS: URINE APPEARANCE BLOODY (CLEAR); URINE COLOR YELLOW (YELLOW)
[2017-02-05] MEDS ORDERED: Influenza Vaccine 60 mcg/0.5 mL SYR (4YR UP) IM ONE (16:35)
[2017-02-05] MEDS ORDERED: Pneumococcal 23-Valent Vaccine IM ONE (16:35)
[2017-02-05] MEDS ORDERED: Albuterol-Ipratrop 3 mg / 0.5 (3 ml) UD IH PRN (17:38)
[2017-02-05] MEDS ORDERED: Albuterol 0.083% Inhal Sol (2.5 mg/3 mL) UD IH PRN (17:38)
--- NOTE | 2017-02-05 17:44 | CP.PCM.HP ---
History of Present Illness - History of Present Illness History of Present Illness: CC: Chest discomfort HPI: Patient is a 66 year old male with PMHx of HTN, CAD, hx of JOYA, and hx of coronary Bypass (07/27/16 at [facility]) who presents the ED with complaints of increasing chest discomfort secondary to a productive non- bloody cough. Patient reports cough has been ongoing for the past couple weeks with the most recent 5-6 days causing him the most discomfort. Patient states that since his bypass has he has had mild chest pain with chest wall itchiness. He reports he feels that as he coughs he feels a painful sensation, almost a tearing sensation in his mid sternum. Patient denies chest pain with exertion, denies shortness of breath with exertion. Within the last few days he states that his chest pain has gotten worse due to the cough. Patient denies taking any medication to aid in the pain except for cough syrup. He denies any fevers, chills, body aches, radiation of pain, SOB, or sick contacts. Patient denies diaphoresis, vomiting, or palpitations. Patient reports he sees Dr. Hinojosa outpatient and is scheduled for outpatient LHC on 02/19/17 after what this interviewer interpreted as an abnormal stress test on 01/15/17. PMH: CAD, HTN PSH: Coronary bypass (07/27/16), JOYA stent Allergies: Denies. [place] per Chart. Social: Denies tobacco, alcohol, or illicit drug use Hos: Most Recent - [facility] for coronary bypass 07/27/16 Meds: - Atorvastati 40mg PO Daily - Plavix 75mg Daily - Metoprolol 25 Daily Present on Admission - Present on Admission Any Indicators Present on Admission: No Review of Systems - Constitutional Constitutional: absent: Chills, Fever, Night Sweats, Weight Loss - EENT Eyes: absent: Blurred Vision, Discharge Ears: absent: Ear Discharge, Dizziness Nose/Mouth/Throat: Nasal Congestion, Nasal Discharge - Cardiovascular Cardiovascular: Chest Pain, Chest Pain at Rest. absent: Dyspnea, Edema, Lightheadedness - Respiratory Respiratory: Cough (productive of white phelgm), Chest Congestion. absent: Hemoptysis, Dyspnea on Exertion, Wheezing, Stridor, Pain on Inspiration - Gastrointestinal Gastrointestinal: absent: Abdominal Pain, Bloating, Constipation, Diarrhea - Genitourinary Genitourinary: absent: Difficulty Urinating, Dysuria, Hematuria - Musculoskeletal Musculoskeletal: absent: Abnormal Gait, Arthralgias, Muscle Weakness - Integumentary Integumentary: absent: Rash, Swelling - Neurological Neurological: absent: Dizziness, Numbness, Focal Weakness, Headaches, Sensory Deficit - Psychiatric Psychiatric: absent: Anxiety, Depression Past Patient History - Infectious Disease Hx of Infectious Diseases: None - Past Social History Smoking Status: Former Smoker Alcohol: None Drugs: Denies - CARDIAC Hx 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) Hx Hypercholesterolemia: Yes Hx Hypertension: Yes Other/Comment: CABG x 3 - PULMONARY Hx Respiratory Disorders: No - NEUROLOGICAL Hx Neurological Disorder: No - HEENT Hx HEENT Problems: No - RENAL Hx Chronic Kidney Disease: No - ENDOCRINE/METABOLIC Hx Endocrine Disorders: No - HEMATOLOGICAL/ONCOLOGICAL Hx Blood Disorders: No - INTEGUMENTARY Hx Dermatological Problems: Yes Other/Comment: healed rash in back of neck, healed mid chest surgical scar - MUSCULOSKELETAL/RHEUMATOLOGICAL Hx Falls: No - GASTROINTESTINAL Hx Gall Bladder Disease: Yes (mrcp 07/04/14 + small gallstones) - GENITOURINARY/GYNECOLOGICAL Hx Genitourinary Disorders: No - PSYCHIATRIC Hx Substance Use: No - SURGICAL HISTORY Hx Surgeries: Yes (left thumb sx) Hx Cardiac Catheterization: Yes Hx Coronary Stent: Yes (x2) Hx Open Heart Surgery: Yes - ANESTHESIA Hx Anesthesia: Yes Hx Anesthesia Reactions: No Hx Malignant Hyperthermia: No Meds Allergies/Adverse Reactions: Allergies Allergy/AdvReac Type Severity Reaction Status Date / Time SALMON Allergy Severe VOMITING/DI Uncoded 09/05/16 12:22 ARRHEA Physical Exam - Constitutional Appears: Non-toxic, No Acute Distress - Head Exam Head Exam: ATRAUMATIC, NORMAL INSPECTION, NORMOCEPHALIC - Eye Exam Eye Exam: EOMI, PERRL Pupil Exam: PERRL - ENT Exam ENT Exam: Mucous Membranes Moist - Respiratory Exam Respiratory Exam: Clear to Auscultation Bilateral, Rhonchi (mild), NORMAL BREATHING PATTERN. absent: Wheezes - Cardiovascular Exam Cardiovascular Exam: REGULAR RHYTHM, +S1, +S2 - GI/Abdominal Exam GI & Abdominal Exam: Normal Bowel Sounds, Soft. absent: Firm, Guarding, Tenderness - Extremities Exam Extremities exam: Positive for: pedal pulses present. Negative for: calf tenderness, pedal edema, tenderness - Back Exam Back exam: NORMAL INSPECTION. absent: CVA tenderness (L), CVA tenderness (R) - Neurological Exam Neurological exam: Alert, Oriented x3 Additional comments: motor and sensory grossly intact - Psychiatric Exam Psychiatric exam: Normal Affect, Normal Mood - Skin Skin Exam: Dry, Intact Results - Vital Signs Recent Vital Signs: Last Vital Signs Temp 97.9 F 02/05/17 16:26 Pulse 57 L 02/05/17 16:26 Resp 17 02/05/17 16:26 BP 125/73 02/05/17 16:26 Pulse Ox 97 02/05/17 16:04 - Labs Result Diagrams: 02/06/17 06:50 02/06/17 06:50 Labs: Laboratory Results - last 24 hr 02/05/17 15:31 Urine Color Yellow Urine Appearance Bloody Urine pH 6.5 Ur Specific [place] 1.015 Urine Protein Negative Urine Glucose (UA) Negative Urine Ketones Negative Urine Blood Negative Urine Nitrate Negative Urine Bilirubin Negative Urine Urobilinogen 0.2 Ur Leukocyte Esterase Negative Assessment & Plan - Assessment and Plan (Free Text) Assessment: Patient is a 66 year old male with PMHx of HTN, CAD, hx of JOYA, and hx of coronary Bypass (07/27/16 at [facility]) who presents the ED with complaints of increasing chest discomfort secondary to a productive non-bloody cough. Patient is admitted for chest pain rule out ACS with initial troponin negative. Will be observed and medically managed. Plan: 1. Chest pain - Etiology: Chostocondritis vs. ACS - Reproducible, NO ST segment elevation/depression, initial trop negative - Patient with history of recent CABG in 07/2016 - Follows Dr. Hinojosa outpatient, scheduled for C on 02/19/17 - Patient reports potential abnormal stress 01/15/17 - Initial troponin negative, repeat x2 - Repeat EKG in AM - Aspirin - Cardiology Consult with Dr. White, appreciate recs 2. HTN - Continue home meds - Monitor DVT ppx: Grace JEAN GI ppx: Case and plan discussed with attending - Date & Time Date: 02/05/17 Time: 17:41
[2017-02-05] MEDS ORDERED: Albuterol 0.083% Inhal Sol (2.5 mg/3 mL) UD IH SCH (19:30)
--- NOTE | 2017-02-05 19:50 | CARD ---
APPROVED REPORT EKG Measurement Heart [id number] <Conclusion> Sinus bradycardia Cannot rule out Inferior infarct, age undetermined Abnormal ECG
[2017-02-06 07:10] LABS: GRAN # 8.34 (1.4-6.5); GRAN % 85.3 % (50.0-68.0); HEMATOCRIT 39.3 % (42.0-52.0); LYMPH # 1.1 (1.2-3.4); LYMPH % 11.1 % (22.0-35.0); MEAN CELL VOLUME 86.2 fl (80.0-105.0); MEAN CORPUSCULAR HEMOGLOBIN 30.3 pg (25.0-35.0); MEAN CORPUSCULAR HGB CONC 35.1 g/dl (31.0-37.0); MEAN PLATELET VOLUME 9.5 fl (7.0-11.0); MONO # 0.4 (0.1-0.6); MONO % 3.6 % (1.0-6.0); RED CELL DISTRIBUTION WIDTH 12.2 % (11.5-14.5); WHITE BLOOD COUNT 9.8 10^3/ul (4.5-11.0)
[2017-02-06 07:34] LABS: INR 1.19 (0.93-1.08); PARTIAL THROMBOPLASTIN TIME 30.4 Seconds (25.1-36.5)
[2017-02-06] MEDS: Pantoprazole 40 mg EC Tab PO SCH (07:51)
[2017-02-06 07:57] LABS: ALB/GLOB RATIO 1.6 (1.1-1.8); ALKALINE PHOSPHATASE 107 U/L (38-126); ALT/SGPT 75 U/L (7-56); AST/SGOT 49 U/L (17-59); BILIRUBIN,TOTAL 1.1 mg/dL (0.2-1.3); BLOOD UREA NITROGEN 20 mg/dL (7-21); CALCIUM 9.4 mg/dL (8.4-10.5); CARBON DIOXIDE 25 mmol/L (21-33); CHLORIDE 104 mmol/L (98-107); GFR AFRICAN-AMERICAN > 60; GLUCOSE,RANDOM 121 mg/dL (70-110); POTASSIUM 4.1 mmol/L (3.6-5.0); SODIUM 140 mmol/L (132-148)
--- NOTE | 2017-02-06 09:23 | CON ---
DATE: 02/05/2017 HISTORY OF PRESENT ILLNESS: The patient is a 66-year-old male who presents with substernal chest pressure. The patient is status post coronary artery bypass surgery. A stress test done earlier this month was abnormal. The patient is scheduled for cardiac catheterization at [facility] later next month. However, he presents with progressive symptoms. The patient's cardiac risk factors includes hypercholesterolemia as well as hypertension. No diabetes mellitus. SOCIAL HISTORY: The patient denies smoking. REVIEW OF SYSTEMS: A 14-point review of systems was reviewed in detail. The patient does complain of occasional dyspnea with cough as well as substernal chest pain. No edema in the lower extremities. PHYSICAL EXAMINATION: VITAL SIGNS: Blood pressure is 125/66, heart rate is in the 80s. NECK: Negative JVD. LUNGS: Without rales. HEART: S1 and S2. EXTREMITIES: Without edema. DIAGNOSTIC STUDIES: EKG shows no acute changes. LABORATORY DATA: Troponins are negative x3. Glucose is 121. Hemoglobin is 13.8. IMPRESSION: 1. Unstable angina. 2. Coronary artery disease. 3. History of coronary artery bypass surgery. 4. Hypercholesterolemia. PLAN: Given these findings, the patient will continue on aspirin and Plavix. I have discussed with the patient through a investigator narcotics about the need for cardiac catheterization. We will schedule. Dagoberto White MD
[2017-02-06] MEDS ORDERED: Lidocaine 2% Inj (20ml) ONE (12:11)
[2017-02-06] MEDS ORDERED: Iohexol 350mgl/ml 50 ML ONE (12:11)
[2017-02-06] MEDS ORDERED: Iohexol 350 MG/100 ML VIAL ONE (12:11)
[2017-02-06] MEDS ORDERED: Phenylephrine 10 mg/ml Inj ONE (12:16)
[2017-02-06] MEDS ORDERED: Midazolam 2 MG/2 ML VIAL ONE ×3 (12:25→12:51)
[2017-02-06] MEDS ORDERED: Sodium Chloride 0.9% 1,000 ML IV SCH (13:30)
--- NOTE | 2017-02-06 17:04 | CP.PCM.PN ---
Subjective - Date & Time of Evaluation Date of Evaluation: 02/06/17 Time of Evaluation: 09:30 - Subjective Subjective: Patient evaluated and examined in AM at bedside. Patient resting comfortably in bed. No acute events overnight. Patient reports continued chest discomfort, increased with palpation, continued cough. Overall patient reports slight improvement in chest discomfort. Patient denies shortness of breath, abdominal pain, change in bowel habits. Objective - Vital Signs/Intake and Output Vital Signs (last 24 hours): Temp Pulse Resp BP Pulse Ox 97.6 F 66 18 104/46 L 97 02/06/17 16:25 02/06/17 16:25 02/06/17 16:25 02/06/17 16:25 02/06/17 05:52 - Medications Medications: Current Medications Albuterol/Ipratropium (Duoneb 3 Mg/0.5 Mg (3 Ml) Ud) 3 ml IH [id number] PRN PRN Reason: trouble breathing, wheezing Aspirin (Ecotrin) 81 mg PO DAILY [facility] Last Admin: 02/06/17 09:53 Dose: 81 mg Atorvastatin Calcium (Lipitor) 40 mg PO DAILY [facility] Last Admin: 02/06/17 09:53 Dose: 40 mg Benzonatate (Tessalon Perles) 100 mg PO TID [facility] Last Admin: 02/06/17 14:35 Dose: 100 mg Clopidogrel Bisulfate (Plavix) 75 mg PO DAILY [facility] Last Admin: 02/06/17 09:53 Dose: 75 mg Heparin Sodium (Porcine) (Heparin) 5,000 units SC Q8 [place] PRN Reason: Protocol Last Admin: 02/06/17 14:34 Dose: Not Given Sodium Chloride (Sodium Chloride 0.9%) 1,000 mls @ 100 mls/hr IV .Q10H [facility] Stop: 02/06/17 19:00 Last Admin: 02/06/17 14:35 Dose: 100 mls/hr Ibuprofen (Motrin Tab) 600 mg PO Q6H PRN PRN Reason: Pain, severe (8-10) Last Admin: 02/05/17 21:37 Dose: 600 mg Metoprolol Tartrate (Lopressor) 25 mg PO DAILY [facility] Last Admin: 02/06/17 09:53 Dose: 25 mg Pantoprazole Sodium (Protonix Ec Tab) 40 mg PO ACB [facility] Last Admin: 02/06/17 07:51 Dose: 40 mg - Labs Labs: PT 13.1 SECONDS (9.4-12.5) H 02/06/17 06:50 INR 1.19 (0.93-1.08) H 02/06/17 06:50 APTT 30.4 Seconds (25.1-36.5) 02/06/17 06:50 - Constitutional Appears: Non-toxic, No Acute Distress - Head Exam Head Exam: ATRAUMATIC, NORMAL INSPECTION, NORMOCEPHALIC - Eye Exam Eye Exam: EOMI, PERRL Pupil Exam: PERRL - ENT Exam ENT Exam: Mucous Membranes Moist - Neck Exam Neck Exam: Full ROM - Respiratory Exam Respiratory Exam: Clear to Ausculation Bilateral, NORMAL BREATHING PATTERN. absent: Rales, Rhonchi, Wheezes - Cardiovascular Exam Cardiovascular Exam: REGULAR RHYTHM, +S1, +S2 Additional comments: Patient with reproducible chest discomfort on palpation of midsternum and left pectorial region - GI/Abdominal Exam GI & Abdominal Exam: Soft, Normal Bowel Sounds. absent: Firm, Guarding, Tenderness - Extremities Exam Extremities Exam: Normal Capillary Refill. absent: Pedal Edema, Tenderness - Back Exam Back Exam: NORMAL INSPECTION - Neurological Exam Neurological Exam: Alert, Awake, Normal Gait, Oriented x3 Neuro motor strength exam: Left Upper Extremity: 5, Right Upper Extremity: 5, Left Lower Extremity: 5, Right Lower Extremity: 5 - Psychiatric Exam Psychiatric exam: Normal Affect, Normal Mood - Skin Skin Exam: Dry, Intact, Normal Color. absent: Rash Assessment and Plan (1) Chest pain Status: Acute (2) Hyperlipidemia Status: Chronic (3) Hypertension Status: Chronic (4) Coronary artery disease Status: Chronic - Assessment and Plan (Free Text) Assessment: Patient is a 66 year old male with PMHx of HTN, CAD, hx of JOYA, and hx of coronary Bypass (07/27/16 at [facility]) who presents the ED with complaints of increasing chest discomfort secondary to a productive non-bloody cough. Patient is admitted for chest pain rule out ACS with negative troponins x3. Patient scheduled for LHC with Dr. White today. Plan: 1. Chest Pain - Etiology: Chostochondritis vs. unstable angina vs. CAD - CP reproducible on PE - Significant medical history: CABG x3 vessel 07/2016, ?abnormal stress test 2016 - Troponin negative x3 - ASA, Lipitor, Plavix, Lopressor - Cardiology consulted, Dr. White - [facility] today - Stent placement LM - monitor on telemetry 2. HTN - BP stable - monitor 3. HLD - Statin 4. Mild Transaminitis - ALT elevated on admission, trending down - Monitor DVT ppx: Heparin GI ppx: Protonix Case and plan discussed with attending
--- NOTE | 2017-02-06 21:12 | CARDCATH ---
PROCEDURE DATE: 02/06/2017 CARDIAC CATHETERIZATION AND PTCA HISTORY: The patient is a 66-year-old male who presents with unstable angina. The patient is status post coronary artery bypass surgery. He suffers from hypertension and hypercholesterolemia. He continues to suffer angina. A stress test performed a few weeks ago was abnormal. Because of this, cardiac catheterization is recommended. PROCEDURE: Left heart catheterization with coronary arteriography, left ventriculogram, RECINOS angiogram, and saphenous vein graft angiogram were performed. This was followed by PTCA and stent of a protected ostial left main stenosis. There were no complications. I performed moderate sedation which included the presence of an independent trained observer that assisted in monitoring the patient's level of consciousness and physiologic status. After administration of Versed and fentanyl, my intra-service time was 30 minutes. The right femoral artery was cannulated with 6-Czech sheath. The findings on catheterization revealed left ventricle that contracted normally. Estimated ejection fraction is 50% to 55%. His coronary anatomy revealed an occluded mid RCA vessel, which is a dominant vessel. The left main artery revealed a 90% ostial stenosis. The LAD revealed diffuse atherosclerosis without critical lesions. There was diagonal vessel that revealed diffuse intimal irregularities without critical lesions. The circumflex artery revealed a 70% stenosis in its proximal portion. The RECINOS to the LAD was patent; however, the vessel remained thin and with minimal flow down the LAD. The saphenous vein graft to the circumflex was best seen on retrograde flow from the obtuse marginal branch back into the aorta. The patient was started on intravenous Angiomax. Under fluoroscopic guide, the guiding catheter was placed just outside the left main artery. An 0.014 ATW wire was used to cross the protected critical left main stenosis. A 3.0 balloon was utilized to pre-dilate the lesion. This was followed by deployment of a 4.0 x 8 mm drug-eluting stent. Postdilatation was performed with a 5.0 noncompliant balloon. Repeat coronary arteriography revealed an excellent result with resolution of the ostial left main stenosis and MONIQUE-3 flow down the coronary arteries. Angio-Seal was used to close the femoral artery site. The patient tolerated the procedure well. In summary, the procedure was successful for PTCA and stent of a protected 90% ostial left main stenosis with a drug-eluting stent. Cardiac catheterization reveal critical left main stenosis with an occluded RCA. The saphenous vein graft to the obtuse marginal branch was patent. The RECINOS to the LAD remained thin with poor flow down the LAD. Given these findings, the patient will remain on aspirin indefinitely and Plavix for least a year and undergo a strict cardiac risk reduction program. Dagoberto White MD
--- NOTE | 2017-02-06 21:52 | CP.PCM.PCO ---
Addendum Addendum: 02/06/17 21:51 Resident orthodontic laboratory technician paged regarding heparin pm dose for patient s/p left heart cath earlier today. Patient is on ASA and Plavix per Dr. White's recs. Heparin dose will be held tonight, and pt continued on dual anti-platelet therapy.
--- NOTE | 2017-02-06 23:13 | CARD ---
APPROVED REPORT EKG Measurement Heart [id number] <Conclusion> Normal sinus rhythm Low voltage QRS Nonspecific T wave abnormality Abnormal ECG
--- NOTE | 2017-02-06 23:41 | CARD ---
APPROVED REPORT EKG Measurement Heart [id number] <Conclusion> Normal sinus rhythm Normal ECG
[2017-02-07 06:25] VITALS: O2SAT 99
[2017-02-07 07:19] LABS: BASO # 0.01 K/mm3 (0.0-2.0); BASO % 0.1 % (0.0-3.0); EOS % 0.2 % (1.5-5.0); GRAN # 6.66 (1.4-6.5); GRAN % 75.9 % (50.0-68.0); HEMATOCRIT 37.4 % (42.0-52.0); LYMPH # 1.6 (1.2-3.4); LYMPH % 18.4 % (22.0-35.0); MEAN CELL VOLUME 87.6 fl (80.0-105.0); MEAN CORPUSCULAR HEMOGLOBIN 30.2 pg (25.0-35.0); MEAN CORPUSCULAR HGB CONC 34.5 g/dl (31.0-37.0); MEAN PLATELET VOLUME 9.1 fl (7.0-11.0); MONO # 0.5 (0.1-0.6); MONO % 5.4 % (1.0-6.0); RED CELL DISTRIBUTION WIDTH 12.7 % (11.5-14.5); WHITE BLOOD COUNT 8.8 10^3/ul (4.5-11.0)
[2017-02-07] MEDS: Pantoprazole 40 mg EC Tab PO SCH (07:30)
[2017-02-07 07:58] LABS: ALB/GLOB RATIO 1.5 (1.1-1.8); ALKALINE PHOSPHATASE 85 U/L (38-126); ALT/SGPT 64 U/L (7-56); AST/SGOT 41 U/L (17-59); BILIRUBIN,TOTAL 0.9 mg/dL (0.2-1.3); BLOOD UREA NITROGEN 24 mg/dL (7-21); CALCIUM 8.8 mg/dL (8.4-10.5); CARBON DIOXIDE 28 mmol/L (21-33); CHLORIDE 105 mmol/L (98-107); CHOLESTEROL 106 mg/dL (130-200); GFR AFRICAN-AMERICAN > 60; GLUCOSE,RANDOM 96 mg/dL (70-110); POTASSIUM 3.9 mmol/L (3.6-5.0); SODIUM 140 mmol/L (132-148); TOTAL PROTEIN 6.4 g/dL (5.8-8.3)
[2017-02-07] MEDS ORDERED: guaiFENesin 100 mg/5 ml Syrup UD PO PRN (08:44)
--- NOTE | 2017-02-07 10:13 | PN ---
DATE: 02/07/2017 SUBJECTIVE: The patient is ambulating without symptoms. PHYSICAL EXAMINATION: VITAL SIGNS: Blood pressure is 123/64 with heart rate in the 80s. NECK: Negative JVD. LUNGS: Without rales. HEART: Reveals S1 and S2. EXTREMITIES: Without edema. DIAGNOSTIC DATA: EKG shows no changes. LABORATORY DATA: Hemoglobin is 12.9. Chemistries: BUN and creatinine are unremarkable. IMPRESSION 1. Status post percutaneous transluminal coronary angioplasty and stent of a critical left main stenoses (the protected left main). 2. Status post failed bypass grafts from his previous bypass surgery. 3. Hypercholesterolemia. 4. Borderline diabetes mellitus. PLAN: 1. Given these findings, the patient is stable for discharge. He will need to continue on aspirin, Plavix and statin therapy. 2. Follow up and instructions have been given to the patient in detail. We will enroll the patient in cardiac rehab. Dagoberto White MD
--- NOTE | 2017-02-07 11:15 | CP.PCM.DIS ---
Provider - Provider Date of Admission: 02/06/17 14:50 Attending physician: Navid Reyez MD Primary care physician: [facility] Consults: Cardiology: Dr. Dagoberto White Time Spent in preparation of Discharge (in minutes): 30 Diagnosis - Discharge Diagnosis (1) Chest pain Status: Acute (2) Hyperlipidemia Status: Chronic (3) Hypertension Status: Chronic (4) Coronary artery disease Status: Chronic (5) Unstable angina Status: Acute Hospital Course - Lab Results Lab Results: Most Recent Lab Values WBC 8.8 10^3/ul (4.5-11.0) 02/07/17 06:45 RBC 4.27 10^6/uL (3.5-6.1) 02/07/17 06:45 Hgb 12.9 g/dL (14.0-18.0) L 02/07/17 06:45 Hct 37.4 % (42.0-52.0) L 02/07/17 06:45 MCV 87.6 fl (80.0-105.0) 02/07/17 06:45 MCH 30.2 pg (25.0-35.0) 02/07/17 06:45 MCHC 34.5 g/dl (31.0-37.0) 02/07/17 06:45 RDW 12.7 % (11.5-14.5) 02/07/17 06:45 Plt Count 215 10^3/uL (120.0-450.0) 02/07/17 06:45 MPV 9.1 fl (7.0-11.0) 02/07/17 06:45 Gran % 75.9 % (50.0-68.0) H 02/07/17 06:45 Lymph % (Auto) 18.4 % (22.0-35.0) L 02/07/17 06:45 Mason % (Auto) 5.4 % (1.0-6.0) 02/07/17 06:45 Eos % (Auto) 0.2 % (1.5-5.0) L 02/07/17 06:45 Baso % (Auto) 0.1 % (0.0-3.0) 02/07/17 06:45 Gran # 6.66 (1.4-6.5) H 02/07/17 06:45 Lymph # 1.6 (1.2-3.4) 02/07/17 06:45 Mason # 0.5 (0.1-0.6) 02/07/17 06:45 Eos # 0.0 (0.0-0.7) 02/07/17 06:45 Baso # 0.01 K/mm3 (0.0-2.0) 02/07/17 06:45 PT 13.1 SECONDS (9.4-12.5) H 02/06/17 06:50 INR 1.19 (0.93-1.08) H 02/06/17 06:50 APTT 30.4 Seconds (25.1-36.5) 02/06/17 06:50 Sodium 140 mmol/L (132-148) 02/07/17 06:45 Potassium 3.9 mmol/L (3.6-5.0) 02/07/17 06:45 Chloride 105 mmol/L (98-107) 02/07/17 06:45 Carbon Dioxide 28 mmol/L (21-33) 02/07/17 06:45 Anion Gap 11 (10-20) 02/07/17 06:45 BUN 24 mg/dL (7-21) H 02/07/17 06:45 Creatinine 1.0 mg/dl (0.8-1.5) 02/07/17 06:45 Est GFR ( Amer) > 60 02/07/17 06:45 Est GFR (Non-Af Amer) > 60 02/07/17 06:45 Random Glucose 96 mg/dL (70-110) 02/07/17 06:45 Calcium 8.8 mg/dL (8.4-10.5) 02/07/17 06:45 Magnesium 1.8 mg/dL (1.7-2.2) 02/05/17 11:35 Total Bilirubin 0.9 mg/dL (0.2-1.3) 02/07/17 06:45 AST 41 U/L (17-59) 02/07/17 06:45 ALT 64 U/L (7-56) H 02/07/17 06:45 Alkaline Phosphatase 85 U/L (38-126) 02/07/17 06:45 Lactate Dehydrogenase 544 U/L (333-699) 02/05/17 11:35 Total Creatine Kinase 122 U/L (35-230) 02/05/17 11:35 Troponin I < 0.01 ng/mL 02/05/17 23:45 NT-Pro-B Natriuret Pep 79.6 pg/mL (0-450) 02/05/17 11:35 Total Protein 6.4 g/dL (5.8-8.3) 02/07/17 06:45 Albumin 3.8 g/dL (3.0-4.8) 02/07/17 06:45 Globulin 2.6 gm/dL 02/07/17 06:45 Albumin/Globulin Ratio 1.5 (1.1-1.8) 02/07/17 06:45 Triglycerides 77 mg/dL (35-160) 02/07/17 06:45 Cholesterol 106 mg/dL (130-200) L 02/07/17 06:45 LDL Cholesterol Direct 58 mg/dL (0-129) 02/07/17 06:45 HDL Cholesterol 31 mg/dL (29-60) 02/07/17 06:45 Lipase 251 U/L (23-300) 02/05/17 11:35 Urine Color Yellow (YELLOW) 02/05/17 15:31 Urine Appearance Bloody (CLEAR) 02/05/17 15:31 Urine pH 6.5 (4.7-8.0) 02/05/17 15:31 Ur Specific [place] 1.015 (1.005-1.035) 02/05/17 15:31 Urine Protein Negative mg/dL (<30 mg/dL) 02/05/17 15:31 Urine Glucose (UA) Negative mg/dL (NEGATIVE) 02/05/17 15:31 Urine Ketones Negative mg/dL (NEGATIVE) 02/05/17 15:31 Urine Blood Negative (NEGATIVE) 02/05/17 15:31 Urine Nitrate Negative (NEGATIVE) 02/05/17 15:31 Urine Bilirubin Negative (NEGATIVE) 02/05/17 15:31 Urine Urobilinogen 0.2 E.U./dL (<1 E.U./dL) 02/05/17 15:31 Ur Leukocyte Esterase Negative Hardeep/uL (NEGATIVE) 02/05/17 15:31 Hepatitis A IgM Ab Negative (NEGATIVE) 02/06/17 07:30 Hep Bs Antigen Negative (NEGATIVE) 02/06/17 07:30 Hep B Core IgM Ab Negative (NEGATIVE) 02/06/17 07:30 Hepatitis C Antibody Negative (NEGATIVE) 02/06/17 07:30 - Hospital Course Hospital Course: Patient is a 66 year old male with PMHx of HTN, CAD, hx of JOYA, and hx of coronary Bypass (07/27/16 at [facility]) who presents the ED with complaints of increasing chest discomfort secondary to a productive non-bloody cough. Patient evaluated in ED and found to have EKG showing bradycardia with evidence of past inferior infarct with Q waves in II, III, aVF. troponin's were drawn on the patient which were negative x 3. Of note prior to presentation patient had been seen in an outpatient cardiology office with Dr. Hinojosa and per the patient he was scheduled for a LHC on 02/19 after a suspected abnormal stress test done earlier in January of 2017. Patient was admitted for observation and cardiology was consulted. Cardiology evaluated the patient and decided to perform a LHC with PCI. Patient was observed overnight and placed on ASA and plavix. Cardiology recommended cardiac rehab which was conveyed to the patient to follow up outpatient. Patient noted to have improvement of his symptoms post cath and was evaluated to be hemodynamically stable, normothermic, euvolemic and discharged home with plan for outpatient follow up. Plan was discussed with patient to continue taking plavix for one year, remain on Aspirin 81mg for life, follow up outpatient with PMD and ultrasound manager. Risks were discussed with patient if deviation of plan occurred, most importantly risk for worsening CAD and possible heart attack. Patient in understanding. - Date & Time of H&P Date of H&P: 02/05/17 Time of H&P: 17:39 Discharge Exam - Head Exam Head Exam: ATRAUMATIC, NORMAL INSPECTION, NORMOCEPHALIC - Eye Exam Eye Exam: EOMI, PERRL - ENT Exam ENT Exam: Mucous Membranes Moist - Neck Exam Neck exam: Full Rom - Respiratory Exam Respiratory Exam: Chest Wall Tenderness (mid sternal, left pectoral ), NORMAL BREATHING PATTERN. absent: Rales, Rhonchi, Wheezes - Cardiovascular Exam Cardiovascular Exam: REGULAR RHYTHM, +S1, +S2 - GI/Abdominal Exam GI & Abdominal Exam: Normal Bowel Sounds, Soft. absent: Firm, Guarding, Rigid, Tenderness - Extremities Exam Extremities exam: normal capillary refill, pedal pulses present - Back Exam Back exam: NORMAL INSPECTION. absent: CVA tenderness (L), CVA tenderness (R) - Neurological Exam Neurological exam: Alert, Normal Gait, Oriented x3 - Psychiatric Exam Psychiatric exam: Normal Affect, Normal Mood - Skin Skin Exam: Dry, Intact, Normal Color, Warm Discharge Plan - Discharge Medications Prescriptions: Benzonatate [Tessalon Perles] 100 mg PO TID 7 Days #21 sgl - Follow Up Plan Condition: STABLE Disposition: HOME/ ROUTINE Instructions: Coronary Artery Disease (DC), Chest Pain (DC), Heart Healthy Diet (DC), Heart Catheterization (DC), Coronary Intravascular Stent Placement ( DC) Additional Instructions: - Follow up outpatient with PMD in 2 to 3 days - Primary care team taking care of you in hospital names and contact info: Dr. Reyez/Dr. Santamaria Office phone number is: [phone], please call if you would like to schedule an appointment after discharge - Follow up with ultrasound manager within 1 week of discharge - Movie Star seen in hospital is Dr. Dagoberto White, phone number for his office is [phone], please call if you would like an appointment - Follow up with ultrasound manager and PMD for cardiac rehab - Take medications as prescribed to you - ASA 81mg - Plavix 75mg - Lopressor 25mg Daily - Lipitor 40mg PO Daily - Adhere to low salt, cardiac healthy diet - Return to ED/hospital if your symptoms return or worsen Referrals: [facility], [Non-Staff] -
[2017-02-07 12:06] VITALS: BP 130/74; PULSE 54; RESP 18; TEMP 98.3
== END 2017-02-07 13:39 | disposition home or self-care (01) | DRG 247 ==
LOC: ED 11:33 → ERH 13:47 → 3RSO 16:17 → 2RSO 02-06 13:38 → OBSVTOIN 02-06 14:50
PROVIDERS: ADMIT Internal Medicine; ATTEND Internal Medicine
PROC: 027034Z Dilation of Coronary Artery, One Artery with Drug-eluting Intraluminal Device, Percutaneous Approach (ICD-10-PCS; principal; 2017-02-06)
PROC: 4A023N7 Measurement of Cardiac Sampling and Pressure, Left Heart, Percutaneous Approach (ICD-10-PCS; 2017-02-06)
PROC: B2111ZZ Fluoroscopy of Multiple Coronary Arteries using Low Osmolar Contrast (ICD-10-PCS; 2017-02-06)
PROC: B2151ZZ Fluoroscopy of Left Heart using Low Osmolar Contrast (ICD-10-PCS; 2017-02-06)
DX: I25.110 Atherosclerotic heart disease of native coronary artery with unstable angina pectoris (principal); E78.5 Hyperlipidemia, unspecified; I10 Essential (primary) hypertension; R73.03 Prediabetes; Z95.1 Presence of aortocoronary bypass graft; Z87.891 Personal history of nicotine dependence; Z79.02 Long term (current) use of antithrombotics/antiplatelets; Z79.82 Long term (current) use of aspirin; Z79.899 Other long term (current) drug therapy

== ENCOUNTER 2017-02-19 09:08 | Emergency (ER) | payer MEDICARE, MEDICAID ==
[2017-02-19 09:09] VITALS: BMI 29.1
[2017-02-19 09:38] VITALS: RESP 18; TEMP 97.9
[2017-02-19 10:02] LABS: BASO # 0.02 K/mm3 (0.0-2.0); BASO % 0.4 % (0.0-3.0); EOS # 0.1 (0.0-0.7); EOS % 2.6 % (1.5-5.0); GRAN # 2.54 (1.4-6.5); GRAN % 54.1 % (50.0-68.0); HEMATOCRIT 38.5 % (42.0-52.0); LYMPH # 1.7 (1.2-3.4); LYMPH % 36.5 % (22.0-35.0); MEAN CELL VOLUME 87.9 fl (80.0-105.0); MEAN CORPUSCULAR HEMOGLOBIN 30.6 pg (25.0-35.0); MEAN CORPUSCULAR HGB CONC 34.8 g/dl (31.0-37.0); MEAN PLATELET VOLUME 9.1 fl (7.0-11.0); MONO # 0.3 (0.1-0.6); MONO % 6.4 % (1.0-6.0); RED CELL DISTRIBUTION WIDTH 12.4 % (11.5-14.5); WHITE BLOOD COUNT 4.7 10^3/ul (4.5-11.0)
--- NOTE | 2017-02-19 10:16 | RAD ---
HISTORY: chest pain COMPARISON: 02/05/2017. FINDINGS: LUNGS: The lungs are well inflated and clear. PLEURA: No significant pleural effusion identified, no pneumothorax apparent. CARDIOVASCULAR: The heart is normal in size. Status post median sternotomy. OSSEOUS STRUCTURES: No significant abnormalities. VISUALIZED UPPER ABDOMEN: Normal. OTHER FINDINGS: None. IMPRESSION: No acute findings.
[2017-02-19 10:30] LABS: TROPONIN I < 0.01 ng/mL
[2017-02-19 10:33] LABS: ALB/GLOB RATIO 1.5 (1.1-1.8); ALKALINE PHOSPHATASE 97 U/L (38-126); ALT/SGPT 63 U/L (7-56); AST/SGOT 49 U/L (17-59); BILIRUBIN,TOTAL 0.9 mg/dL (0.2-1.3); BLOOD UREA NITROGEN 15 mg/dL (7-21); CALCIUM 9.2 mg/dL (8.4-10.5); CARBON DIOXIDE 26 mmol/L (21-33); CHLORIDE 104 mmol/L (98-107); GFR AFRICAN-AMERICAN > 60; GLUCOSE,RANDOM 101 mg/dL (70-110); POTASSIUM 4.3 mmol/L (3.6-5.0); SODIUM 141 mmol/L (132-148); TOTAL PROTEIN 7.1 g/dL (5.8-8.3)
[2017-02-19 12:14] VITALS: BP 121/69; PULSE 53; O2SAT 99
--- NOTE | 2017-02-19 13:34 | ED PDOC ---
Arrival/HPI - General Chief Complaint: Chest Pain Time Seen by Provider: 02/19/17 09:54 Historian: Patient, Compliance Reviewer - History of Present Illness Narrative History of Present Illness (Text): 02/19/17 13:36 66-year-old male presents today with chest pain and cough. Patient states he's been having on and off chest pain which he describes as a discomfort. The states pain is worse with cough. Patient states he's had a cough with white phlegm x 1 week. pt denies fever/chills. denies dizziness or weakness. no vomiting/diarrhea. denies abdominal pain. denies back pain. pt states pain is similar to prior visits. pt with hx of CABG and recent cardiac catheterization. 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) Hx Hypertension: Yes Other/Comment: CABG x 3 - Pulmonary Hx Respiratory Disorders: No - Neurological Hx Neurological Disorder: No - HEENT Hx HEENT Disorder: No - Renal Hx Renal Disorder: No - Endocrine/Metabolic Hx Endocrine Disorders: No - Hematological/Oncological Hx Blood Disorders: No - Integumentary Hx Dermatological Disorder: Yes Other/Comment: healed rash in back of neck, healed mid chest surgical scar - Musculoskeletal/Rheumatological Hx Falls: No - Gastrointestinal Hx Gall Bladder Disease: Yes (mrcp 07/04/14 + small gallstones) - Genitourinary/Gynecological Hx Genitourinary Disorders: No - Psychiatric Hx Emotional Abuse: No Hx Physical Abuse: No Hx Substance Use: No - Surgical History Hx Cardiac Catheterization: Yes Hx Coronary Stent: Yes (x2) Hx Open Heart Surgery: Yes - Anesthesia Hx Anesthesia: Yes Hx Anesthesia Reactions: No Hx Malignant Hyperthermia: No - Suicidal Assessment Feels Threatened In Home Enviroment: No Family/Social History - Physician Review Nursing Documentation Reviewed: Yes Family/Social History: Unknown Family HX Smoking Status: Former Smoker Hx Alcohol Use: Yes (quit 1988) Hx Substance Use: No Allergies/Home Meds Allergies/Adverse Reactions: Allergies SALMON Allergy (Severe, Uncoded 09/05/16 12:22) VOMITING/DIARRHEA Home Medications: Home Meds Medication Instructions Recorded Confirmed Aspirin [Aspirin Chewable] 81 mg PO DAILY 10/04/16 02/19/17 Atorvastatin [Lipitor] 40 mg PO DAILY 10/04/16 02/19/17 Clopidogrel [Plavix] 75 mg PO DAILY 10/04/16 02/19/17 Metoprolol Tartrate [Lopressor] 25 mg PO DAILY 10/04/16 02/19/17 Review of Systems - Review of Systems Constitutional: absent: Fatigue, Fevers Respiratory: Cough. absent: SOB Cardiovascular: Chest Pain. absent: Palpitations Gastrointestinal: absent: Abdominal Pain, Nausea, Vomiting Genitourinary Male: absent: Dysuria Musculoskeletal: absent: Arthralgias Skin: absent: Rash, Pruritis Neurological: absent: Headache, Dizziness Psychiatric: absent: Anxiety, Depression, Suicidal Ideation Physical Exam Vital Signs Reviewed: Yes Vital Signs Temp Pulse Pulse Resp BP Pulse Ox 02/19/17 12:08 53 L 18 121/69 99 02/19/17 11:09 54 L 18 123/61 97 02/19/17 09:34 97.9 F 61 18 134/80 99 02/19/17 09:20 58 L Temperature: Afebrile Blood Pressure: Normal Pulse: Regular Respiratory Rate: Normal Appearance: Positive for: Well-Appearing, Non-Toxic, Comfortable Pain Distress: None Mental Status: Positive for: Alert and Oriented X 3 - Systems Exam Head: Present: Atraumatic Mouth: Present: Moist Mucous Membranes Neck: Present: Normal Range of Motion Respiratory/Chest: Present: Clear to Auscultation, Good Air Exchange. No: Respiratory Distress, Accessory Muscle Use Cardiovascular: Present: Regular Rate and Rhythm Abdomen: No: Tenderness, Distention, Rebound, Guarding Back: Present: Normal Inspection. No: Midline Tenderness, Paraspinal Tenderness Upper Extremity: Present: Normal ROM Lower Extremity: Present: Normal ROM. No: Edema Neurological: Present: GCS=15, Speech Normal Skin: Present: Warm, Dry, Normal Color. No: Rashes Psychiatric: Present: Alert, Oriented x 3 Medical Decision Making ED Course and Treatment: 02/19/17 13:45 pt with chest pain and cough. vitals stable cbc; wnl cmp; wnl trop: wnl ekg; sinus bradycardia at [address] elevations normal QTC cxr wnl asa po pt reassessment; pt non toxic well appearing; stable vitals. pt with cough and atypical chest pain with significant cardiac history. dr. yoo discussed the case with Dr. ebcerra; will Admit observational status to Tele for chest pain. impression; chest pain Admit observational status to tele; Dr. becerra - Lab Interpretations Lab Results: 02/19/17 09:40 02/19/17 09:40 Lab Results 02/19/17 09:40: WBC 4.7 D, RBC 4.38, Hgb 13.4 L, Hct 38.5 L, MCV 87.9, MCH 30.6 , MCHC 34.8, RDW 12.4, Plt Count 216, MPV 9.1, Gran % 54.1, Lymph % (Auto) 36.5 H, Cole % (Auto) 6.4 H, Eos % (Auto) 2.6, Baso % (Auto) 0.4, Gran # 2.54, Lymph # 1.7, Cole # 0.3, Eos # 0.1, Baso # 0.02 02/19/17 09:40: Sodium 141, Potassium 4.3, Chloride 104, Carbon Dioxide 26, Anion Gap 15, BUN 15, Creatinine 1.0, Est GFR ( Amer) > 60, Est GFR (Non- Af Amer) > 60, Random Glucose 101, Calcium 9.2, Total Bilirubin 0.9, AST 49, ALT 63 H, Alkaline Phosphatase 97, Lactate Dehydrogenase 519, Total Creatine Kinase 77, Troponin I < 0.01, NT-Pro-B Natriuret Pep 44.5, Total Protein 7.1, Albumin 4.3, Globulin 2.8, Albumin/Globulin Ratio 1.5 - RAD Interpretation Radiology Orders: 02/19/17 09:55 CHEST PORTABLE [RAD] Stat - Medication Orders Current Medication Orders: Discontinued Medications Aspirin (Aspirin) 325 mg PO STAT STA Stop: 02/19/17 11:17 Last Admin: 02/19/17 11:24 Dose: 325 mg Disposition/Present on Arrival - Present on Arrival Any Indicators Present on Arrival: No History of DVT/PE: No History of Uncontrolled Diabetes: No Urinary Catheter: No History of Decub. Ulcer: No History Surgical Site Infection Following: None - Disposition Have Diagnosis and Disposition been Completed?: Yes Diagnosis: Chest pain Disposition: HOSPITALIZED Disposition Time: 11:50 Patient Plan: Observation Condition: FAIR
--- NOTE | 2017-02-19 17:23 | CARD ---
APPROVED REPORT EKG Measurement Heart [id number] <Conclusion> Poor data quality, interpretation may be adversely affected Sinus bradycardia Otherwise normal ECG
== END 2017-02-19 13:21 | disposition left against medical advice (07) ==
LOC: ED 09:08 → ERH 11:52 → UNDOADMOB 11:52 → ERH 13:21
DX: R07.9 Chest pain, unspecified (principal); I10 Essential (primary) hypertension; Z87.891 Personal history of nicotine dependence